=== PATIENT | female | born 1945 | race Caucasian/White ===

== ENCOUNTER 2020-06-24 10:04 | Inpatient (IN) | payer MEDICARE ==
[2020-06-24] MEDS ORDERED: Zofran 4 MG/2 ML VIAL IV ONE (10:20)
[2020-06-24] MEDS ORDERED: PROTONIX 40 MG IV IV ONE ×2 (10:20→10:46)
[2020-06-24] MEDS ORDERED: Sodium Chloride 0.9% 1000 ML 1,000 ML IV STA ×3 (10:20→16:16)
[2020-06-24] MEDS ORDERED: Zofran 4 MG/2 ML VIAL ONE (10:46)
[2020-06-24] MEDS ORDERED: Sodium Chloride 0.9% 1000 ML 1,000 ML ONE ×2 (10:46→11:32)
[2020-06-24 11:11] LABS: Absolute Neutrophil Ct (ANC) 7.78 (1.4-6.9); BASOPHIL % 0.3 % (0.0-0.4); Basophil (Absolute #) 0.03 (0-0.4); Hematocrit 33.3 % (35-47); Hemoglobin 10.3 gm/dl (12.0-16.0); Lymphocyte (Absolute #) 1.63 (1.0-4.6); Lymphocytes % 16.4 % (24.0-44.0); Mean Cell Volume 98.2 fl (78-100); Mean Corpuscular Hemoglobin 30.4 pg (26-32); Mean Corpuscular Hgb Concent. 30.9 g/dl (32-36); Mean Platelet Volume 11.1 fl (7.5-11.0); Monocyte (Absolute #) 0.39 (0.0-1.3); Monocytes % 3.9 % (0.0-12.0); Neutrophil % 78.4 % (36.0-66.0); Platelet Count 295 K/mm3 (150-450); Red Blood Count 3.39 M/mm3 (4.1-5.4); Red Cell Distribution Width 15.3 % (11.5-14.0); White Blood Count 9.9 K/mm3 (4.0-10.5)
--- NOTE | 2020-06-24 11:13 | ERPHSYRPT ---
- History of Present Illness Time Seen by Provider: 06/24/20 11:11 Source: patient Exam Limitations: no limitations Patient Subjective Stated Complaint: Pt has been sick for approx 3 weeks, been vomiting for about a week, diarhea, body aches, dizzy, last intake yesterday v luiz minimal, Triage Nursing Assessment: Pt brought to the ER by her daughter, A&O, weak, dizzy, nauseaous, denies pain, hypotensive, pulses normal, skin n/c/d Physician History: Pt has been sick for approx 3 weeks, been vomiting for about a week, diarhea, body aches, dizzy, last intake yesterday very minimal, denies any fever shortness of breath or chest pain Timing/Duration: week(s) (three) Severity: moderate Associated Symptoms: nausea, vomiting, abdominal pain, loss of appetite, weakness Allergies/Adverse Reactions: No Known Drug Allergies Allergy (Verified 06/24/20 10:37) Home Medications: Aspirin EC 81 mg [Ecotrin 81 mg] 81 mg PO DAILY 07/23/13 [History] Metformin HCl 1000 mg [Glucophage 1000 MG] 1,000 mg PO BID 07/23/13 [History] Metoprolol Succinate 50 mg [Toprol Xl 50 MG] 50 mg PO BID 07/23/13 [History] Glucosam/Chondr/Collagn/Hyalur [Glucosamine & Chondroitin Cap] 1 tab PO BID [History] Simvastatin 40 mg PO DAILY 07/26/13 [History] Empagliflozin [Jardiance] 10 mg PO QAM 06/24/20 [History] Lisinopril/Hydrochlorothiazide [Lisinopril-Hctz 10-12.5 mg Tab] 1 tab PO DAILY 06/24/20 [History] Ondansetron HCl 4 mg SL Q8H 06/24/20 [History] allopurinoL [Allopurinol] 300 mg PO BID 06/24/20 [History] Hx Influenza Vaccination/Date Given: No Hx Pneumococcal Vaccination/Date Given: No Travel Risk - International Travel Have you traveled outside of the country in past 3 weeks: No - Coronavirus Screening Are you exhibiting any of the following symptoms?: Yes Symptoms: Vomiting/Diarrhea, Headaches/Body Aches/Fatigue Close contact with a COVID-19 positive Pt in past 14-21 Days: No - Review of Systems Constitutional: Weakness, No Fever, No Chills Eyes: No Symptoms Ears, Nose, & Throat: No Symptoms Respiratory: No Cough, No Dyspnea Cardiac: No Chest Pain, No Edema, No Syncope Abdominal/Gastrointestinal: Abdominal Pain, Nausea, Vomiting, Appetite Changes, No Diarrhea Genitourinary Symptoms: No Dysuria Musculoskeletal: No Back Pain, No Neck Pain Skin: No Rash Neurological: No Dizziness, No Focal Weakness, No Sensory Changes Psychological: No Symptoms Endocrine: No Symptoms All Other Systems: Reviewed and Negative - Past Medical History Pertinent Past Medical History: Yes Neurological History: No Pertinent History ENT History: No Pertinent History Cardiac History: High Cholesterol, Hypertension Respiratory History: No Pertinent History Endocrine Medical History: Diabetes Type II, Other Musculoskeletal History: Osteoarthritis GI Medical History: Gallbladder Disease History: No Pertinent History Psycho-Social History: No Pertinent History Female Reproductive Disorders: Abnormal Uterine Bleeding Other Medical History: liver enlarged and thryoid nodules - Past Surgical History Past Surgical History: Yes Neuro Surgical History: No Pertinent History Cardiac: No Pertinent History Respiratory: No Pertinent History Gastrointestinal: Cholecystectomy Genitourinary: No Pertinent History Musculoskeletal: No Pertinent History Female Surgical History: Hysterectomy - Social History Smoking Status: Never smoker Exposure to second hand smoke: No Drug Use: none Patient Lives Alone: Yes - Female History Hx Now: No - Nursing Vital Signs Nursing Vital Signs: Initial Vital Signs Temperature 98.3 F 06/24/20 10:22 Pulse Rate 78 06/24/20 10:22 Blood Pressure 88/45 06/24/20 10:22 O2 Sat by Pulse Oximetry 100 06/24/20 10:22 Pain Scale Pain Intensity 0 - Physical Exam General Appearance: no apparent distress, alert Eye Exam: PERRL/EOMI, eyes nml inspection Ears, Nose, Throat Exam: normal ENT inspection, TMs normal, pharynx normal, moist mucous membranes Neck Exam: normal inspection, non-tender, supple, full range of motion Respiratory Exam: normal breath sounds, lungs clear, No respiratory distress Cardiovascular Exam: regular rate/rhythm, normal heart sounds, normal peripheral pulses Gastrointestinal/Abdomen Exam: soft, normal bowel sounds, No tenderness, No mass Back Exam: normal inspection, normal range of motion, No CVA tenderness, No vertebral tenderness Extremity Exam: normal inspection, normal range of motion, pelvis stable Neurologic Exam: alert, oriented x 3, cooperative, normal mood/affect, nml cerebellar function, nml station & gait, sensation nml, No motor deficits Skin Exam: normal color, warm, dry, No rash Lymphatic Exam: No adenopathy SpO2: 99 - Course Nursing assessment & vital signs reviewed: Yes Ordered Tests: Active Orders 24 hr Category Date Time Status IV Insertion STAT Care 06/24/20 11:04 Active IV Insertion-2nd Peripheral STAT Care 06/24/20 11:04 Active CBC W DIFF Stat Lab 06/24/20 11:00 Completed CMP Stat Lab 06/24/20 11:00 Completed CULTURE,URINE Stat Lab 06/24/20 11:02 Received LIPASE Stat Lab 06/24/20 11:00 Completed Lactic Acid Stat Lab 06/24/20 11:03 Completed TROPONIN Q3H Lab 06/24/20 11:00 Completed TROPONIN Q3H Lab 06/24/20 13:30 Ordered TROPONIN Q3H Lab 06/24/20 16:30 Ordered TROPONIN Q3H Lab 06/24/20 19:30 Ordered TROPONIN Q3H Lab 06/24/20 22:30 Ordered UA W/RFX UR CULTURE Stat Lab 06/24/20 11:02 Completed Transfer Order Routine Transfer 06/24/20 Ordered Medication Summary Generic Name Dose Route Start Last Admin Trade Name Freq PRN Reason Stop Dose Admin Sodium Chloride 1,000 mls @ 999 mls/hr 06/24/20 11:51 06/24/20 11:52 Sodium Chloride 0.9% 1000 Ml IV 06/24/20 12:51 999 mls/hr .Q1H1M STA Administration Discontinued Medications Generic Name Dose Route Start Last Admin Trade Name Freq PRN Reason Stop Dose Admin Sodium Chloride 1,000 mls @ 999 mls/hr 06/24/20 10:20 06/24/20 11:50 Sodium Chloride 0.9% 1000 Ml IV 06/24/20 11:20 Infused .Q1H1M STA Infusion Sodium Chloride Confirm 06/24/20 10:46 Sodium Chloride 0.9% 1000 Ml Administered 06/24/20 10:47 Dose 1,000 mls @ ud .ROUTE .STK-MED ONE Sodium Chloride Confirm 06/24/20 11:32 Sodium Chloride 0.9% 1000 Ml Administered 06/24/20 11:33 Dose 1,000 mls @ ud .ROUTE .STK-MED ONE Ondansetron HCl 4 mg 06/24/20 10:20 06/24/20 10:49 Zofran 4 Mg/2 Ml Vial IV 06/24/20 10:21 4 mg STAT ONE Administration Ondansetron HCl Confirm 06/24/20 10:46 Zofran 4 Mg/2 Ml Vial Administered 06/24/20 10:47 Dose 4 mg .ROUTE .STK-MED ONE Pantoprazole Sodium 40 mg 06/24/20 10:20 06/24/20 10:49 Protonix 40 Mg Iv IV 06/24/20 10:21 40 mg STAT ONE Administration Pantoprazole Sodium Confirm 06/24/20 10:46 Protonix 40 Mg Iv Administered 06/24/20 10:47 Dose 40 mg IV .K-MED ONE Lab/Rad Data: Laboratory Result Diagrams 06/24/20 11:00 06/24/20 11:00 Laboratory Results 06/24/20 06/24/20 06/24/20 Range/Units 11:03 11:02 11:00 WBC (4.0-10.5) K/mm3 RBC (4.1-5.4) M/mm3 Hgb (12.0-16.0) gm/dl Hct (35-47) % MCV (78-100) fl MCH (26-32) pg MCHC (32-36) g/dl RDW (11.5-14.0) % Plt Count (150-450) K/mm3 MPV (7.5-11.0) fl Gran % (36.0-66.0) % Eos # (Auto) (0-0.5) Absolute Lymphs (auto) (1.0-4.6) Absolute Monos (auto) (0.0-1.3) Lymphocytes % (24.0-44.0) % Monocytes % (0.0-12.0) % Eosinophils % (0.00-5.0) % Basophils % (0.0-0.4) % Absolute Granulocytes (1.4-6.9) Basophils # (0-0.4) Sodium (137-145) mmol/L Potassium (3.5-5.1) mmol/L Chloride (98-107) mmol/L Carbon Dioxide (22-30) mmol/L Anion Gap (5-15) MEQ/L BUN (7-17) mg/dL Creatinine (0.52-1.04) mg/dL Estimated GFR ML/MIN Glucose (74-106) mg/dL Lactic Acid 1.6 (0.4-2.0) Calcium (8.4-10.2) mg/dL Total Bilirubin (0.2-1.3) mg/dL AST (14-36) U/L ALT (0-35) U/L Alkaline Phosphatase (38-126) U/L Troponin I 0.016 (0.000-0.034) ng/mL Serum Total Protein (6.3-8.2) g/dL Albumin (3.5-5.0) g/dL Lipase (23-300) U/L Urine Color YELLOW (YELLOW) Urine Appearance SLIGHTLY CLOUDY (CLEAR) Urine pH 5.0 (5-6) Ur Specific [place] 1.016 (1.005-1.025) Urine Protein 100 (Negative) Urine Ketones TRACE (NEGATIVE) Urine Blood MODERATE (0-5) Luiz/ul Urine Nitrite NEGATIVE (NEGATIVE) Urine Bilirubin SMALL (NEGATIVE) Urine Urobilinogen 2 (0-1) mg/dL Ur Leukocyte Esterase SMALL (NEGATIVE) Urine WBC (Auto) 6-10 (0-5) /HPF Urine RBC (Auto) 0-2 (0-2) /HPF U Hyaline Cast (Auto) 6-10 (0-2) /LPF U Epithel Cells (Auto) RARE (FEW) /HPF Urine Bacteria (Auto) FEW (NEGATIVE) /HPF Urine Mucus (Auto) SLIGHT (NEGATIVE) /HPF Urine Culture Reflexed YES (NO) Urine Glucose 50 (NEGATIVE) mg/dL 06/24/20 06/24/20 Range/Units 11:00 11:00 WBC 9.9 (4.0-10.5) K/mm3 RBC 3.39 L (4.1-5.4) M/mm3 Hgb 10.3 L (12.0-16.0) gm/dl Hct 33.3 L (35-47) % MCV 98.2 (78-100) fl MCH 30.4 (26-32) pg MCHC 30.9 L (32-36) g/dl RDW 15.3 H (11.5-14.0) % Plt Count 295 (150-450) K/mm3 MPV 11.1 H (7.5-11.0) fl Gran % 78.4 H (36.0-66.0) % Eos # (Auto) 0.10 (0-0.5) Absolute Lymphs (auto) 1.63 (1.0-4.6) Absolute Monos (auto) 0.39 (0.0-1.3) Lymphocytes % 16.4 L (24.0-44.0) % Monocytes % 3.9 (0.0-12.0) % Eosinophils % 1.0 (0.00-5.0) % Basophils % 0.3 (0.0-0.4) % Absolute Granulocytes 7.78 H (1.4-6.9) Basophils # 0.03 (0-0.4) Sodium 135 L (137-145) mmol/L Potassium 4.5 (3.5-5.1) mmol/L Chloride 99 (98-107) mmol/L Carbon Dioxide 14 L* (22-30) mmol/L Anion Gap 26.1 H (5-15) MEQ/L BUN 101 H (7-17) mg/dL Creatinine 10.32 H (0.52-1.04) mg/dL Estimated GFR 3.9 ML/MIN Glucose 173 H (74-106) mg/dL Lactic Acid (0.4-2.0) Calcium 10.1 (8.4-10.2) mg/dL Total Bilirubin 0.40 (0.2-1.3) mg/dL AST 26 (14-36) U/L ALT 27 (0-35) U/L Alkaline Phosphatase 372 H (38-126) U/L Troponin I (0.000-0.034) ng/mL Serum Total Protein 7.4 (6.3-8.2) g/dL Albumin 4.3 (3.5-5.0) g/dL Lipase 1055 H (23-300) U/L Urine Color (YELLOW) Urine Appearance (CLEAR) Urine pH (5-6) Ur Specific [place] (1.005-1.025) Urine Protein (Negative) Urine Ketones (NEGATIVE) Urine Blood (0-5) Luiz/ul Urine Nitrite (NEGATIVE) Urine Bilirubin (NEGATIVE) Urine Urobilinogen (0-1) mg/dL Ur Leukocyte Esterase (NEGATIVE) Urine WBC (Auto) (0-5) /HPF Urine RBC (Auto) (0-2) /HPF U Hyaline Cast (Auto) (0-2) /LPF U Epithel Cells (Auto) (FEW) /HPF Urine Bacteria (Auto) (NEGATIVE) /HPF Urine Mucus (Auto) (NEGATIVE) /HPF Urine Culture Reflexed (NO) Urine Glucose (NEGATIVE) mg/dL - Progress Progress: improved Discussed with : Hanny Will see patient in: hospital (full admit) Counseled pt/family regarding: lab results, diagnosis, need for follow-up - Departure Departure Disposition: In-patient Admission Clinical Impression: Dehydration, Metabolic acidosis due to diabetes mellitus Acute renal failure syndrome Qualifiers: Acute renal failure type: unspecified Qualified Code(s): N17.9 - Acute kidney f ailure, unspecified Condition: Fair Critical Care Time: Yes Critical Care Time(excluding separately billable procedures): Critical 30-74 mins Referrals: SHANDRA LEONARD MD [Primary Care Provider] -
[2020-06-24 11:21] LABS: ALBUMIN 4.3 g/dL (3.5-5.0); ANION GAP 26.1 MEQ/L (5-15); BILIRUBIN,TOTAL 0.4 mg/dL (0.2-1.3); Calcium 10.1 mg/dL (8.4-10.2); Creatinine 1 10.32 mg/dL (0.52-1.04); EST GLOMERULAR FILTRATION RATE 3.9 ML/MIN; Potassium 4.5 mmol/L (3.5-5.1); Total Protein 7.4 g/dL (6.3-8.2)
[2020-06-24 11:24] LABS: Appearance SLIGHTLY CLOUDY (CLEAR); Bacteria FEW /HPF (NEGATIVE); Bilirubin SMALL (NEGATIVE); Blood MODERATE Ery/ul (0-5); Epithelial Cells RARE /HPF (FEW); Glucose 50 mg/dL (NEGATIVE); Ketones TRACE (NEGATIVE); Leukocyte Esterase SMALL (NEGATIVE); Mucus SLIGHT /HPF (NEGATIVE); Nitrite NEGATIVE (NEGATIVE); Protein,Urine Dip 100 (Negative); RBC 0-2 /HPF (0-2); Specific Gravity 1.016 (1.005-1.025); Urobilinogen 2 mg/dL (0-1)
[2020-06-24] MEDS ORDERED: HUMULIN R SQ PRN (12:25)
[2020-06-24] MEDS: Sodium Chloride 0.9% 1000 ML 1,000 ML IV SCH ×2 (12:45→18:23)
[2020-06-24] MEDS ORDERED: Zestril 10 MG*** 10 MG, hydroDIURIL 25 MG*** 12.5 MG PO SCH ×2 (14:00)
[2020-06-24] MEDS ORDERED: NON-FORMULARY ITEM (Ondansetron Hcl [Ondansetron Hcl] 4 MG) SL SCH (14:00)
--- NOTE | 2020-06-24 14:25 | PCM.HP ---
History of Present Illness - Chief Complaint Chief Complaint: DEHYDRATION, ARF History of Present Illness: is a 75 year old female.Pt brought to the ER by her daughter, A&O, weak, dizzy, nauseaous, denies pain, Pt has been sick for approx 3 weeks, been vomiting for about a week, diarhea, body aches, dizzy, last intake yesterday very minimal, denies any fever shortness of breath or chest pain Timing/Duration: week(s) (three) Severity: moderate Associated Symptoms: nausea, vomiting, abdominal pain, loss of appetite, weakness - Review of Systems Constitutional: Lethargy, Weakness, No Fever, No Chills Eyes: No Symptoms Ears, Nose, & Throat: No Symptoms Respiratory: No Cough, No Short Of Breath Cardiac: No Chest Pain, No Edema, No Syncope Abdominal/Gastrointestinal: No Abdominal Pain, No Nausea, No Vomiting, No Diarrhea Genitourinary Symptoms: No Dysuria Musculoskeletal: No Back Pain, No Neck Pain Skin: No Rash Neurological: No Dizziness, No Focal Weakness, No Sensory Changes Psychological: No Symptoms Endocrine: No Symptoms Hematologic/Lymphatic: No Symptoms Immunological/Allergic: No Symptoms Medications & Allergies Home Medications: Home Medication List Aspirin EC 81 mg [Ecotrin 81 mg] 81 mg PO DAILY 07/23/13 [History Confirmed 06/24/20] Metformin HCl 1000 mg [Glucophage 1000 MG] 1,000 mg PO BID 07/23/13 [History Confirmed 06/24/20] Metoprolol Succinate 50 mg [Toprol Xl 50 MG] 50 mg PO BID 07/23/13 [History Confirmed 06/24/20] Empagliflozin [Jardiance] 10 mg PO QAM 06/24/20 [History Confirmed 06/24/20] Lisinopril/Hydrochlorothiazide [Lisinopril-Hctz 10-12.5 mg Tab] 1 tab PO DAILY 06/24/20 [History Confirmed 06/24/20] Ondansetron HCl 4 mg SL Q8H 06/24/20 [History Confirmed 06/24/20] Simvastatin 40 mg PO HS 06/24/20 [History Confirmed 06/24/20] allopurinoL [Allopurinol] 300 mg PO BID 06/24/20 [History Confirmed 06/24/20] Allergies/Adverse Reactions: Allergies Allergy/AdvReac Type Severity Reaction Status Date / Time No Known Drug Allergies Allergy Verified 06/24/20 10:37 - Past Medical History Past Medical History: Yes Neurological History: No Pertinent History ENT History: No Pertinent History Cardiac History: High Cholesterol, Hypertension Respiratory History: No Pertinent History Endocrine Medical History: Diabetes Type II, Other Musculoskelatal History: Osteoarthritis GI Medical History: Gallbladder Disease History: No Pertinent History Pyscho-Social History: No Pertinent History Reproductive Disorders: Abnormal Uterine Bleeding Comment: liver enlarged and thryoid nodules - Female History Are you now?: No - Past Surgical History Past Surgical History: Yes Neuro Surgical History: No Pertinent History Cardiac History: No Pertinent History Respiratory Surgery: No Pertinent History GI Surgical History: Cholecystectomy Genitourinary Surgical Hx: No Pertinent History Musculskeletal Surgical Hx: No Pertinent History Female Surgical History: Hysterectomy - Social History Smoking Status: Never smoker Exposure to second hand smoke: No Alcohol: None Drug Use: none - Physical Exam Vital Signs: Vital Signs - 24 hr Temp Pulse Resp BP Pulse Ox 06/24/20 13:31 94 L 06/24/20 12:20 98.5 F 69 16 91/44 98 06/24/20 12:01 68 16 84/39 94 L 06/24/20 11:56 99 06/24/20 11:05 72 18 83/40 99 06/24/20 10:22 98.3 F 78 88/45 100 General Appearance: no apparent distress, alert Neurologic Exam: alert, oriented x 3, cooperative, normal mood/affect, nml cerebellar function, nml station & gait, sensation nml, No motor deficits Eye Exam: PERRL/EOMI, eyes nml inspection Ears, Nose, Throat Exam: normal ENT inspection, TMs normal, pharynx normal, moist mucous membranes Neck Exam: normal inspection, non-tender, supple, full range of motion Respiratory Exam: normal breath sounds, lungs clear, No respiratory distress Cardiovascular Exam: regular rate/rhythm, normal heart sounds, normal peripheral pulses Gastrointestinal/Abdomen Exam: soft, normal bowel sounds, No tenderness, No mass Back Exam: normal inspection, normal range of motion, No CVA tenderness, No vertebral tenderness Extremity Exam: normal inspection, normal range of motion, pelvis stable Skin Exam: normal color, warm, dry, No rash Lymphatic Exam: No adenopathy Results - Labs Lab/Micro Results: Lab Results-Last 24 Hours 06/24/20 06/24/20 06/24/20 Range/Units 11:00 11:00 11:00 WBC 9.9 (4.0-10.5) K/mm3 RBC 3.39 L (4.1-5.4) M/mm3 Hgb 10.3 L (12.0-16.0) gm/dl Hct 33.3 L (35-47) % MCV 98.2 (78-100) fl MCH 30.4 (26-32) pg MCHC 30.9 L (32-36) g/dl RDW 15.3 H (11.5-14.0) % Plt Count 295 (150-450) K/mm3 MPV 11.1 H (7.5-11.0) fl Gran % 78.4 H (36.0-66.0) % Eos # (Auto) 0.10 (0-0.5) Absolute Lymphs (auto) 1.63 (1.0-4.6) Absolute Monos (auto) 0.39 (0.0-1.3) Lymphocytes % 16.4 L (24.0-44.0) % Monocytes % 3.9 (0.0-12.0) % Eosinophils % 1.0 (0.00-5.0) % Basophils % 0.3 (0.0-0.4) % Absolute Granulocytes 7.78 H (1.4-6.9) Basophils # 0.03 (0-0.4) Sodium 135 L (137-145) mmol/L Potassium 4.5 (3.5-5.1) mmol/L Chloride 99 (98-107) mmol/L Carbon Dioxide 14 L* (22-30) mmol/L Anion Gap 26.1 H (5-15) MEQ/L BUN 101 H (7-17) mg/dL Creatinine 10.32 H (0.52-1.04) mg/dL Estimated GFR 3.9 ML/MIN Glucose 173 H (74-106) mg/dL Lactic Acid (0.4-2.0) Calcium 10.1 (8.4-10.2) mg/dL Total Bilirubin 0.40 (0.2-1.3) mg/dL AST 26 (14-36) U/L ALT 27 (0-35) U/L Alkaline Phosphatase 372 H (38-126) U/L Troponin I 0.016 (0.000-0.034) ng/mL Serum Total Protein 7.4 (6.3-8.2) g/dL Albumin 4.3 (3.5-5.0) g/dL Lipase 1055 H (23-300) U/L Urine Color (YELLOW) Urine Appearance (CLEAR) Urine pH (5-6) Ur Specific [place] (1.005-1.025) Urine Protein (Negative) Urine Ketones (NEGATIVE) Urine Blood (0-5) Luiz/ul Urine Nitrite (NEGATIVE) Urine Bilirubin (NEGATIVE) Urine Urobilinogen (0-1) mg/dL Ur Leukocyte Esterase (NEGATIVE) Urine WBC (Auto) (0-5) /HPF Urine RBC (Auto) (0-2) /HPF U Hyaline Cast (Auto) (0-2) /LPF U Epithel Cells (Auto) (FEW) /HPF Urine Bacteria (Auto) (NEGATIVE) /HPF Urine Mucus (Auto) (NEGATIVE) /HPF Urine Culture Reflexed (NO) Urine Glucose (NEGATIVE) mg/dL 06/24/20 06/24/20 Range/Units 11:02 11:03 WBC (4.0-10.5) K/mm3 RBC (4.1-5.4) M/mm3 Hgb (12.0-16.0) gm/dl Hct (35-47) % MCV (78-100) fl MCH (26-32) pg MCHC (32-36) g/dl RDW (11.5-14.0) % Plt Count (150-450) K/mm3 MPV (7.5-11.0) fl Gran % (36.0-66.0) % Eos # (Auto) (0-0.5) Absolute Lymphs (auto) (1.0-4.6) Absolute Monos (auto) (0.0-1.3) Lymphocytes % (24.0-44.0) % Monocytes % (0.0-12.0) % Eosinophils % (0.00-5.0) % Basophils % (0.0-0.4) % Absolute Granulocytes (1.4-6.9) Basophils # (0-0.4) Sodium (137-145) mmol/L Potassium (3.5-5.1) mmol/L Chloride (98-107) mmol/L Carbon Dioxide (22-30) mmol/L Anion Gap (5-15) MEQ/L BUN (7-17) mg/dL Creatinine (0.52-1.04) mg/dL Estimated GFR ML/MIN Glucose (74-106) mg/dL Lactic Acid 1.6 (0.4-2.0) Calcium (8.4-10.2) mg/dL Total Bilirubin (0.2-1.3) mg/dL AST (14-36) U/L ALT (0-35) U/L Alkaline Phosphatase (38-126) U/L Troponin I (0.000-0.034) ng/mL Serum Total Protein (6.3-8.2) g/dL Albumin (3.5-5.0) g/dL Lipase (23-300) U/L Urine Color YELLOW (YELLOW) Urine Appearance SLIGHTLY CLOUDY (CLEAR) Urine pH 5.0 (5-6) Ur Specific [place] 1.016 (1.005-1.025) Urine Protein 100 (Negative) Urine Ketones TRACE (NEGATIVE) Urine Blood MODERATE (0-5) Luiz/ul Urine Nitrite NEGATIVE (NEGATIVE) Urine Bilirubin SMALL (NEGATIVE) Urine Urobilinogen 2 (0-1) mg/dL Ur Leukocyte Esterase SMALL (NEGATIVE) Urine WBC (Auto) 6-10 (0-5) /HPF Urine RBC (Auto) 0-2 (0-2) /HPF U Hyaline Cast (Auto) 6-10 (0-2) /LPF U Epithel Cells (Auto) RARE (FEW) /HPF Urine Bacteria (Auto) FEW (NEGATIVE) /HPF Urine Mucus (Auto) SLIGHT (NEGATIVE) /HPF Urine Culture Reflexed YES (NO) Urine Glucose 50 (NEGATIVE) mg/dL - Other Procedures and Tests Respiratory Therapy 06/24/20 12:25 Oxygen Nasal Cannula 2 lpm Assessment/Plan (1) Acute renal failure syndrome Current Visit: Yes Status: Acute Qualifiers: Acute renal failure type: unspecified Qualified Code(s): N17.9 - Acute kidney failure, unspecified Assessment & Plan: Abnormal Lab Results 06/24/20 06/24/20 Range/Units 11:00 11:00 RBC 3.39 L (4.1-5.4) M/mm3 Hgb 10.3 L (12.0-16.0) gm/dl Hct 33.3 L (35-47) % MCHC 30.9 L (32-36) g/dl RDW 15.3 H (11.5-14.0) % MPV 11.1 H (7.5-11.0) fl Gran % 78.4 H (36.0-66.0) % Lymphocytes % 16.4 L (24.0-44.0) % Absolute Granulocytes 7.78 H (1.4-6.9) Sodium 135 L (137-145) mmol/L Carbon Dioxide 14 L* (22-30) mmol/L Anion Gap 26.1 H (5-15) MEQ/L BUN 101 H (7-17) mg/dL Creatinine 10.32 H (0.52-1.04) mg/dL Glucose 173 H (74-106) mg/dL Alkaline Phosphatase 372 H (38-126) U/L Lipase 1055 H (23-300) U/L (2) Pancreatitis Current Visit: Yes Status: Acute Qualifiers: Chronicity: acute Pancreatitis type: unspecified pancreatitis type Acute pancreatitis complication: unspecified Qualified Code(s): K85.90 - Acute pancr eatitis without necrosis or infection, unspecified Code(s): K85.90 - ACUTE PANCREATITIS WITHOUT NECROSIS OR INFECTION, UNSP (3) Type 2 diabetes mellitus Current Visit: Yes Status: Acute 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 use Diabetes mellitus complication status: with ketoacidosis Diabetes mellitus complication detail: without coma Qualified Code(s): E11.10 - Type 2 diabetes mellitus with ketoacidosis without coma (4) Metabolic acidosis due to diabetes mellitus Current Visit: Yes Status: Acute Code(s): E11.69 - TYPE 2 DIABETES MELLITUS WITH OTHER SPECIFIED COMPLICATION; E87.2 - ACIDOSIS (5) Hypertension Current Visit: Yes Status: Chronic Qualifiers: Hypertension type: essential hypertension Qualified Code(s): I10 - Essen tial (primary) hypertension Code(s): I10 - ESSENTIAL (PRIMARY) HYPERTENSION (6) Dehydration Current Visit: Yes Status: Acute Code(s): E86.0 - DEHYDRATION
[2020-06-24] MEDS: Toprol Xl 50 MG PO SCH ×2 (14:35→21:01)
[2020-06-24] MEDS: ECOTRIN 81 MG PO SCH (14:35)
[2020-06-24] MEDS: TYLENOL 325 MG PO PRN (16:43)
[2020-06-24] MEDS: Zofran 4 MG/2 ML VIAL IV PRN ×2 (16:43→23:08)
[2020-06-24] MEDS ORDERED: Sodium Chloride 0.9% 1000 ML 1,000 ML IV SCH (17:30)
[2020-06-24 19:39] LABS: ALBUMIN 3.1 g/dL (3.5-5.0); ANION GAP 18.3 MEQ/L (5-15); BILIRUBIN,TOTAL 0.3 mg/dL (0.2-1.3); Calcium 8.3 mg/dL (8.4-10.2); Creatinine 1 8.34 mg/dL (0.52-1.04); Potassium 4.2 mmol/L (3.5-5.1); Total Protein 5.6 g/dL (6.3-8.2)
[2020-06-24] MEDS: Sodium Chloride 0.9% 1000 ML 1,000 ML IV STA (21:59)
[2020-06-24] MEDS ORDERED: NON-FORMULARY ITEM (Simvastatin [Simvastatin] 40 MG) PO SCH (22:00)
[2020-06-24] MEDS ORDERED: NON-FORMULARY ITEM (Metformin Hcl 1000 Mg [Glucophage 1000 Mg] 1,000 MG) PO SCH (22:00)
[2020-06-24] MEDS ORDERED: ZYLOPRIM 300 MG PO SCH (22:00)
[2020-06-25] MEDS: Sodium Chloride 0.9% 1000 ML 1,000 ML IV STA (00:08)
[2020-06-25] MEDS: Sodium Chloride 0.9% 1000 ML 1,000 ML IV SCH ×4 (01:08→20:54)
[2020-06-25] MEDS: TYLENOL 325 MG PO PRN ×2 (06:39→14:08)
[2020-06-25 06:52] LABS: ALBUMIN 2.7 g/dL (3.5-5.0); ANION GAP 14.6 MEQ/L (5-15); BILIRUBIN,TOTAL 0.3 mg/dL (0.2-1.3); Calcium 8.2 mg/dL (8.4-10.2); Creatinine 1 6.92 mg/dL (0.52-1.04); EST GLOMERULAR FILTRATION RATE 6.1 ML/MIN; Total Protein 5.2 g/dL (6.3-8.2)
[2020-06-25] MEDS: Sodium Chloride 0.9% 10 ML FLUSH Syringe IV SCH ×3 (07:30→20:55)
[2020-06-25 07:36] LABS: Absolute Neutrophil Ct (ANC) 3.99 (1.4-6.9); BASOPHIL % 0.4 % (0.0-0.4); Basophil (Absolute #) 0.03 (0-0.4); Eosinophil % 3.3 % (0.00-5.0); Eosinophil (Absolute #) 0.23 (0-0.5); Hematocrit 26.8 % (35-47); Hemoglobin 8.1 gm/dl (12.0-16.0); Lymphocyte (Absolute #) 2.16 (1.0-4.6); Lymphocytes % 31.2 % (24.0-44.0); Mean Corpuscular Hemoglobin 30.2 pg (26-32); Mean Corpuscular Hgb Concent. 30.2 g/dl (32-36); Mean Platelet Volume 11.5 fl (7.5-11.0); Monocyte (Absolute #) 0.51 (0.0-1.3); Monocytes % 7.4 % (0.0-12.0); Neutrophil % 57.7 % (36.0-66.0); Platelet Count 183 K/mm3 (150-450); Red Blood Count 2.68 M/mm3 (4.1-5.4); Red Cell Distribution Width 15.4 % (11.5-14.0); White Blood Count 6.9 K/mm3 (4.0-10.5)
--- NOTE | 2020-06-25 08:28 | XRAY ---
Indication: Nausea, vomiting, weakness, and elevated amylase/lipase. Multiple contiguous axial images obtained through the abdomen and pelvis without contrast as ordered. Comparison: None Lung bases demonstrates fibrosis/scarring and minimal bilateral dependent atelectasis. No infiltrate or effusion. Heart is borderline enlarged. Small hiatal hernia. Noncontrasted stomach and bowel loops appear nonobstructed. Normal appendix. Scattered sigmoid diverticulosis. Head and body of the pancreas appears prominent/edematous with peripancreatic stranding favoring acute pancreatitis. Adjacent duodenal circumferential wall thickening presumed reactive. Tiny inferior perihepatic and pelvic free fluid. No walled off fluid collection or free air. Previous cholecystectomy and hysterectomy. Remaining liver, spleen, adrenal glands, kidneys, ureters, and bladder appear unremarkable for noncontrast exam. Mild aortoiliac calcifications without AAA. Osseous structures demonstrates mild osteopenia, mild/moderate degenerative spondylosis throughout the thoracolumbar spine, and left L5 spondylolysis with 2-3 mm spondylolisthesis. Impression: 1. CT findings favoring acute pancreatitis as detailed with tiny free fluid. No walled off fluid collection or free air. 2. Incidental small hiatal hernia, sigmoid diverticulosis, and chronic bony findings. Comment: Preliminary interpretation was made by [facility]. No critical discrepancy.
--- NOTE | 2020-06-25 08:58 | PCM.NOTE ---
Date and Time: 06/25/20 0856 Subjective Assessment: doing better, BP is running low, urine output improving. still feels weak and dizzy - Review of Systems Constitutional: Weakness, No Fever, No Chills Eyes: No Symptoms Ears, Nose, & Throat: No Symptoms Respiratory: No Cough, No Short Of Breath Cardiac: No Chest Pain, No Edema, No Syncope Abdominal/Gastrointestinal: No Abdominal Pain, No Nausea, No Vomiting, No Diarrhea Genitourinary Symptoms: No Dysuria Musculoskeletal: No Back Pain, No Neck Pain Skin: No Rash Neurological: No Dizziness, No Focal Weakness, No Sensory Changes Psychological: No Symptoms Endocrine: No Symptoms Hematologic/Lymphatic: No Symptoms Immunological/Allergic: No Symptoms Objective Exam General Appearance: no apparent distress, alert Neurologic Exam: alert, oriented x 3, cooperative, normal mood/affect, nml cerebellar function, sensation nml, No motor deficits Skin Exam: normal color, warm, dry Eye Exam: PERRL, EOMI, eyes nml inspection Ears, Nose, Throat Exam: normal ENT inspection, pharynx normal, moist mucous mem branes Neck Exam: normal inspection, non-tender, supple, full range of motion Respiratory Exam: normal breath sounds, lungs clear, No respiratory distress Cardiovascular Exam: regular rate/rhythm, normal heart sounds Gastrointestinal/Abdomen Exam: soft, No tenderness, No mass Extremity Exam: normal inspection, normal range of motion Back Exam: normal inspection, normal range of motion, No CVA tenderness, No vertebral tenderness Pelvic Exam: deferred Rectal Exam: deferred OBJECTIVE DATA Vital Signs: Vital Signs - 24 hr Temp Pulse Resp BP Pulse Ox 06/25/20 07:01 98.7 F 67 18 91/44 94 L 06/25/20 06:59 94 L 06/25/20 04:00 97.5 F 79 17 83/43 97 06/24/20 23:47 98.0 F 79 16 89/43 96 06/24/20 21:30 71 87/40 06/24/20 20:11 94 L 06/24/20 20:00 98.2 F 71 17 89/46 98 06/24/20 16:00 98.1 F 79 18 88/47 93 L 06/24/20 13:31 94 L 06/24/20 12:20 98.5 F 69 16 91/44 98 06/24/20 12:01 68 16 84/39 94 L 06/24/20 11:56 99 06/24/20 11:05 72 18 83/40 99 06/24/20 10:22 98.3 F 78 88/45 100 Pain Assessment - Last Documented Pain Intensity 5 Pain Scale Used 0-10 Pain Scale Intake and Output: Intake & Output 06/22/20 06/23/20 06/24/20 06/25/20 11:59 11:59 11:59 11:59 Intake Total 9716 Output Total 1350 Balance 8366 Weight 80.286 kg 80.3 kg Lab Results: Lab Results-Last 24 Hours 06/24/20 06/24/20 06/24/20 Range/Units 11:00 11:00 11:00 WBC 9.9 (4.0-10.5) K/mm3 RBC 3.39 L (4.1-5.4) M/mm3 Hgb 10.3 L (12.0-16.0) gm/dl Hct 33.3 L (35-47) % MCV 98.2 (78-100) fl MCH 30.4 (26-32) pg MCHC 30.9 L (32-36) g/dl RDW 15.3 H (11.5-14.0) % Plt Count 295 (150-450) K/mm3 MPV 11.1 H (7.5-11.0) fl Gran % 78.4 H (36.0-66.0) % Eos # (Auto) 0.10 (0-0.5) Absolute Lymphs (auto) 1.63 (1.0-4.6) Absolute Monos (auto) 0.39 (0.0-1.3) Lymphocytes % 16.4 L (24.0-44.0) % Monocytes % 3.9 (0.0-12.0) % Eosinophils % 1.0 (0.00-5.0) % Basophils % 0.3 (0.0-0.4) % Absolute Granulocytes 7.78 H (1.4-6.9) Basophils # 0.03 (0-0.4) Sodium 135 L (137-145) mmol/L Potassium 4.5 (3.5-5.1) mmol/L Chloride 99 (98-107) mmol/L Carbon Dioxide 14 L* (22-30) mmol/L Anion Gap 26.1 H (5-15) MEQ/L BUN 101 H (7-17) mg/dL Creatinine 10.32 H (0.52-1.04) mg/dL Estimated GFR 3.9 ML/MIN Glucose 173 H (74-106) mg/dL POC Glucometer (74 to 106) mg/dL Hemoglobin A1c (4.5-6.0) % Lactic Acid (0.4-2.0) Calcium 10.1 (8.4-10.2) mg/dL Total Bilirubin 0.40 (0.2-1.3) mg/dL AST 26 (14-36) U/L ALT 27 (0-35) U/L Alkaline Phosphatase 372 H (38-126) U/L Troponin I 0.016 (0.000-0.034) ng/mL Serum Total Protein 7.4 (6.3-8.2) g/dL Albumin 4.3 (3.5-5.0) g/dL Amylase (30-110) U/L Lipase 1055 H (23-300) U/L Urine Color (YELLOW) Urine Appearance (CLEAR) Urine pH (5-6) Ur Specific [place] (1.005-1.025) Urine Protein (Negative) Urine Ketones (NEGATIVE) Urine Blood (0-5) Luiz/ul Urine Nitrite (NEGATIVE) Urine Bilirubin (NEGATIVE) Urine Urobilinogen (0-1) mg/dL Ur Leukocyte Esterase (NEGATIVE) Urine WBC (Auto) (0-5) /HPF Urine RBC (Auto) (0-2) /HPF U Hyaline Cast (Auto) (0-2) /LPF U Epithel Cells (Auto) (FEW) /HPF Urine Bacteria (Auto) (NEGATIVE) /HPF Urine Mucus (Auto) (NEGATIVE) /HPF Urine Culture Reflexed (NO) Urine Glucose (NEGATIVE) mg/dL 06/24/20 06/24/20 06/24/20 Range/Units 11:02 11:03 14:00 WBC (4.0-10.5) K/mm3 RBC (4.1-5.4) M/mm3 Hgb (12.0-16.0) gm/dl Hct (35-47) % MCV (78-100) fl MCH (26-32) pg MCHC (32-36) g/dl RDW (11.5-14.0) % Plt Count (150-450) K/mm3 MPV (7.5-11.0) fl Gran % (36.0-66.0) % Eos # (Auto) (0-0.5) Absolute Lymphs (auto) (1.0-4.6) Absolute Monos (auto) (0.0-1.3) Lymphocytes % (24.0-44.0) % Monocytes % (0.0-12.0) % Eosinophils % (0.00-5.0) % Basophils % (0.0-0.4) % Absolute Granulocytes (1.4-6.9) Basophils # (0-0.4) Sodium (137-145) mmol/L Potassium (3.5-5.1) mmol/L Chloride (98-107) mmol/L Carbon Dioxide (22-30) mmol/L Anion Gap (5-15) MEQ/L BUN (7-17) mg/dL Creatinine (0.52-1.04) mg/dL Estimated GFR ML/MIN Glucose (74-106) mg/dL POC Glucometer (74 to 106) mg/dL Hemoglobin A1c (4.5-6.0) % Lactic Acid 1.6 (0.4-2.0) Calcium (8.4-10.2) mg/dL Total Bilirubin (0.2-1.3) mg/dL AST (14-36) U/L ALT (0-35) U/L Alkaline Phosphatase (38-126) U/L Troponin I 0.012 (0.000-0.034) ng/mL Serum Total Protein (6.3-8.2) g/dL Albumin (3.5-5.0) g/dL Amylase (30-110) U/L Lipase (23-300) U/L Urine Color YELLOW (YELLOW) Urine Appearance SLIGHTLY CLOUDY (CLEAR) Urine pH 5.0 (5-6) Ur Specific [place] 1.016 (1.005-1.025) Urine Protein 100 (Negative) Urine Ketones TRACE (NEGATIVE) Urine Blood MODERATE (0-5) Luiz/ul Urine Nitrite NEGATIVE (NEGATIVE) Urine Bilirubin SMALL (NEGATIVE) Urine Urobilinogen 2 (0-1) mg/dL Ur Leukocyte Esterase SMALL (NEGATIVE) Urine WBC (Auto) 6-10 (0-5) /HPF Urine RBC (Auto) 0-2 (0-2) /HPF U Hyaline Cast (Auto) 6-10 (0-2) /LPF U Epithel Cells (Auto) RARE (FEW) /HPF Urine Bacteria (Auto) FEW (NEGATIVE) /HPF Urine Mucus (Auto) SLIGHT (NEGATIVE) /HPF Urine Culture Reflexed YES (NO) Urine Glucose 50 (NEGATIVE) mg/dL 06/24/20 06/24/20 06/24/20 Range/Units 14:30 16:08 19:25 WBC (4.0-10.5) K/mm3 RBC (4.1-5.4) M/mm3 Hgb (12.0-16.0) gm/dl Hct (35-47) % MCV (78-100) fl MCH (26-32) pg MCHC (32-36) g/dl RDW (11.5-14.0) % Plt Count (150-450) K/mm3 MPV (7.5-11.0) fl Gran % (36.0-66.0) % Eos # (Auto) (0-0.5) Absolute Lymphs (auto) (1.0-4.6) Absolute Monos (auto) (0.0-1.3) Lymphocytes % (24.0-44.0) % Monocytes % (0.0-12.0) % Eosinophils % (0.00-5.0) % Basophils % (0.0-0.4) % Absolute Granulocytes (1.4-6.9) Basophils # (0-0.4) Sodium 138 (137-145) mmol/L Potassium 4.2 (3.5-5.1) mmol/L Chloride 111 H D (98-107) mmol/L Carbon Dioxide 13 L* (22-30) mmol/L Anion Gap 18.3 H (5-15) MEQ/L BUN 91 H (7-17) mg/dL Creatinine 8.34 H (0.52-1.04) mg/dL Estimated GFR 5.0 ML/MIN Glucose 107 H (74-106) mg/dL POC Glucometer 122 H (74 to 106) mg/dL Hemoglobin A1c 6.46 H (4.5-6.0) % Lactic Acid (0.4-2.0) Calcium 8.3 L D (8.4-10.2) mg/dL Total Bilirubin 0.30 (0.2-1.3) mg/dL AST 20 (14-36) U/L ALT 20 (0-35) U/L Alkaline Phosphatase 258 H (38-126) U/L Troponin I (0.000-0.034) ng/mL Serum Total Protein 5.6 L (6.3-8.2) g/dL Albumin 3.1 L (3.5-5.0) g/dL Amylase (30-110) U/L Lipase (23-300) U/L Urine Color (YELLOW) Urine Appearance (CLEAR) Urine pH (5-6) Ur Specific [place] (1.005-1.025) Urine Protein (Negative) Urine Ketones (NEGATIVE) Urine Blood (0-5) Luiz/ul Urine Nitrite (NEGATIVE) Urine Bilirubin (NEGATIVE) Urine Urobilinogen (0-1) mg/dL Ur Leukocyte Esterase (NEGATIVE) Urine WBC (Auto) (0-5) /HPF Urine RBC (Auto) (0-2) /HPF U Hyaline Cast (Auto) (0-2) /LPF U Epithel Cells (Auto) (FEW) /HPF Urine Bacteria (Auto) (NEGATIVE) /HPF Urine Mucus (Auto) (NEGATIVE) /HPF Urine Culture Reflexed (NO) Urine Glucose (NEGATIVE) mg/dL 06/24/20 06/25/20 06/25/20 Range/Units 20:35 04:00 05:45 WBC (4.0-10.5) K/mm3 RBC (4.1-5.4) M/mm3 Hgb (12.0-16.0) gm/dl Hct (35-47) % MCV (78-100) fl MCH (26-32) pg MCHC (32-36) g/dl RDW (11.5-14.0) % Plt Count (150-450) K/mm3 MPV (7.5-11.0) fl Gran % (36.0-66.0) % Eos # (Auto) (0-0.5) Absolute Lymphs (auto) (1.0-4.6) Absolute Monos (auto) (0.0-1.3) Lymphocytes % (24.0-44.0) % Monocytes % (0.0-12.0) % Eosinophils % (0.00-5.0) % Basophils % (0.0-0.4) % Absolute Granulocytes (1.4-6.9) Basophils # (0-0.4) Sodium 141 (137-145) mmol/L Potassium 4.0 (3.5-5.1) mmol/L Chloride 119 H (98-107) mmol/L Carbon Dioxide 11 L* (22-30) mmol/L Anion Gap 14.6 (5-15) MEQ/L BUN 78 H (7-17) mg/dL Creatinine 6.92 H (0.52-1.04) mg/dL Estimated GFR 6.1 ML/MIN Glucose 103 (74-106) mg/dL POC Glucometer 95 (74 to 106) mg/dL Hemoglobin A1c (4.5-6.0) % Lactic Acid 0.7 (0.4-2.0) Calcium 8.2 L (8.4-10.2) mg/dL Total Bilirubin 0.30 (0.2-1.3) mg/dL AST 19 (14-36) U/L ALT 17 (0-35) U/L Alkaline Phosphatase 236 H (38-126) U/L Troponin I (0.000-0.034) ng/mL Serum Total Protein 5.2 L (6.3-8.2) g/dL Albumin 2.7 L (3.5-5.0) g/dL Amylase 169 H (30-110) U/L Lipase 1394 H (23-300) U/L Urine Color (YELLOW) Urine Appearance (CLEAR) Urine pH (5-6) Ur Specific [place] (1.005-1.025) Urine Protein (Negative) Urine Ketones (NEGATIVE) Urine Blood (0-5) Luiz/ul Urine Nitrite (NEGATIVE) Urine Bilirubin (NEGATIVE) Urine Urobilinogen (0-1) mg/dL Ur Leukocyte Esterase (NEGATIVE) Urine WBC (Auto) (0-5) /HPF Urine RBC (Auto) (0-2) /HPF U Hyaline Cast (Auto) (0-2) /LPF U Epithel Cells (Auto) (FEW) /HPF Urine Bacteria (Auto) (NEGATIVE) /HPF Urine Mucus (Auto) (NEGATIVE) /HPF Urine Culture Reflexed (NO) Urine Glucose (NEGATIVE) mg/dL 06/25/20 06/25/20 Range/Units 06:00 06:31 WBC 6.9 (4.0-10.5) K/mm3 RBC 2.68 L (4.1-5.4) M/mm3 Hgb 8.1 L D (12.0-16.0) gm/dl Hct 26.8 L (35-47) % MCV 100.0 (78-100) fl MCH 30.2 (26-32) pg MCHC 30.2 L (32-36) g/dl RDW 15.4 H (11.5-14.0) % Plt Count 183 D (150-450) K/mm3 MPV 11.5 H (7.5-11.0) fl Gran % 57.7 (36.0-66.0) % Eos # (Auto) 0.23 (0-0.5) Absolute Lymphs (auto) 2.16 (1.0-4.6) Absolute Monos (auto) 0.51 (0.0-1.3) Lymphocytes % 31.2 (24.0-44.0) % Monocytes % 7.4 (0.0-12.0) % Eosinophils % 3.3 (0.00-5.0) % Basophils % 0.4 (0.0-0.4) % Absolute Granulocytes 3.99 (1.4-6.9) Basophils # 0.03 (0-0.4) Sodium (137-145) mmol/L Potassium (3.5-5.1) mmol/L Chloride (98-107) mmol/L Carbon Dioxide (22-30) mmol/L Anion Gap (5-15) MEQ/L BUN (7-17) mg/dL Creatinine (0.52-1.04) mg/dL Estimated GFR ML/MIN Glucose (74-106) mg/dL POC Glucometer 98 (74 to 106) mg/dL Hemoglobin A1c (4.5-6.0) % Lactic Acid (0.4-2.0) Calcium (8.4-10.2) mg/dL Total Bilirubin (0.2-1.3) mg/dL AST (14-36) U/L ALT (0-35) U/L Alkaline Phosphatase (38-126) U/L Troponin I (0.000-0.034) ng/mL Serum Total Protein (6.3-8.2) g/dL Albumin (3.5-5.0) g/dL Amylase (30-110) U/L Lipase (23-300) U/L Urine Color (YELLOW) Urine Appearance (CLEAR) Urine pH (5-6) Ur Specific [place] (1.005-1.025) Urine Protein (Negative) Urine Ketones (NEGATIVE) Urine Blood (0-5) Luiz/ul Urine Nitrite (NEGATIVE) Urine Bilirubin (NEGATIVE) Urine Urobilinogen (0-1) mg/dL Ur Leukocyte Esterase (NEGATIVE) Urine WBC (Auto) (0-5) /HPF Urine RBC (Auto) (0-2) /HPF U Hyaline Cast (Auto) (0-2) /LPF U Epithel Cells (Auto) (FEW) /HPF Urine Bacteria (Auto) (NEGATIVE) /HPF Urine Mucus (Auto) (NEGATIVE) /HPF Urine Culture Reflexed (NO) Urine Glucose (NEGATIVE) mg/dL Radiology Exams: Radiology Procedures Category Date Time Status ABDOMEN AND PELVIS W/0 CONTRAS [CT] Routine Exams 06/25/20 07:[address]/ABDOMEN AND PELVIS W/0 CONTRAS Indication: Nausea, vomiting, weakness, and elevated amylase/lipase. Multiple contiguous axial images obtained through the abdomen and pelvis without contrast as ordered. Comparison: None Lung bases demonstrates fibrosis/scarring and minimal bilateral dependent atelectasis. No infiltrate or effusion. Heart is borderline enlarged. Small hiatal hernia. Noncontrasted stomach and bowel loops appear nonobstructed. Normal appendix. Scattered sigmoid diverticulosis. Head and body of the pancreas appears prominent/edematous with peripancreatic stranding favoring acute pancreatitis. Adjacent duodenal circumferential wall thickening presumed reactive. Tiny inferior perihepatic and pelvic free fluid. No walled off fluid collection or free air. Previous cholecystectomy and hysterectomy. Remaining liver, spleen, adrenal glands, kidneys, ureters, and bladder appear unremarkable for noncontrast exam. Mild aortoiliac calcifications without AAA. Osseous structures demonstrates mild osteopenia, mild/moderate degenerative spondylosis throughout the thoracolumbar spine, and left L5 spondylolysis with 2-3 mm spondylolisthesis. Impression: 1. CT findings favoring acute pancreatitis as detailed with tiny free fluid. No walled off fluid collection or free air. 2. Incidental small hiatal hernia, sigmoid diverticulosis, and chronic bony findings. Assessment/Plan (1) Pancreatitis Current Visit: Yes Status: Acute Qualifiers: Chronicity: acute Pancreatitis type: unspecified pancreatitis type Acute pancreatitis complication: unspecified Qualified Code(s): K85.90 - Acute pancreatitis without necrosis or infection, unspecified Assessment & Plan: Chief Complaint Diagnosis DEHYDRATION, ARF Allergies Allergy/AdvReac Type Severity Reaction Status Date / Time No Known Drug Allergies Allergy Verified 06/24/20 10:37 Vital Signs (Last 24 hours) Temp Pulse Resp BP Pulse Ox 06/25/20 07:01 98.7 F 67 18 91/44 94 L 06/25/20 06:59 94 L 06/25/20 04:00 97.5 F 79 17 83/43 97 06/24/20 23:47 98.0 F 79 16 89/43 96 06/24/20 21:30 71 87/40 06/24/20 20:11 94 L 06/24/20 20:00 98.2 F 71 17 89/46 98 06/24/20 16:00 98.1 F 79 18 88/47 93 L 06/24/20 13:31 94 L 06/24/20 12:20 98.5 F 69 16 91/44 98 06/24/20 12:01 68 16 84/39 94 L 06/24/20 11:56 99 06/24/20 11:05 72 18 83/40 99 06/24/20 10:22 98.3 F 78 88/45 100 Home Medications Medication Instructions Recorded Confirmed Last Taken Type Empagliflozin [Jardiance] 10 mg PO QAM 06/24/20 06/24/20 06/23/20 History Lisinopril/Hydrochlorothiazide 1 tab PO DAILY 06/24/20 06/24/20 06/23/20 History [Lisinopril-Hctz 10-12.5 mg Tab] Ondansetron HCl 4 mg SL Q8H 06/24/20 06/24/20 06/23/20 History Simvastatin 40 mg PO HS 06/24/20 06/24/20 06/23/20 History allopurinoL [Allopurinol] 300 mg PO BID 06/24/20 06/24/20 06/23/20 History Current Medications Generic Name Dose Route Start Last Admin Trade Name Freq PRN Reason Stop Dose Admin Acetaminophen 650 mg 06/24/20 16:22 06/25/20 06:39 Tylenol 325 Mg PO 07/24/20 16:21 650 mg Q4H PRN PRN Administration PAIN AND/OR FEVER Aspirin 81 mg 06/24/20 14:00 06/24/20 14:35 Ecotrin 81 Mg PO 07/24/20 13:59 Not Given DAILY RAMILA Sodium Chloride 1,000 mls @ 150 mls/hr 06/24/20 12:25 06/25/20 08:05 Sodium Chloride 0.9% 1000 Ml IV 07/24/20 12:24 150 mls/hr .Q6H40M RAMILA Administration Ceftriaxone Sodium/Dextrose 1 g in 50 mls @ 100 mls/hr 06/25/20 10:00 Rocephin 1 Gm-D5w 50 Ml Bag IV 07/25/20 09:59 Q24H10 RAMILA Insulin Human Regular 0 unit 06/24/20 12:25 Humulin R SQ 07/24/20 12:24 UD PRN HYPERGLYCEMIA Metoprolol Succinate 50 mg 06/24/20 14:00 06/24/20 21:01 Toprol Xl 50 Mg PO 07/24/20 13:59 Not Given BID RAMILA Ondansetron HCl 4 mg 06/24/20 12:25 06/24/20 23:08 Zofran 4 Mg/2 Ml Vial IV 07/24/20 12:24 4 mg Q6H PRN PRN Administration NAUSEA/VOMITING Discontinued Medications Generic Name Dose Route Start Last Admin Trade Name Freq PRN Reason Stop Dose Admin Sodium Chloride 1,000 mls @ 999 mls/hr 06/24/20 10:20 06/24/20 11:50 Sodium Chloride 0.9% 1000 Ml IV 06/24/20 11:20 Infused .Q1H1M STA Infusion Sodium Chloride Confirm 06/24/20 10:46 Sodium Chloride 0.9% 1000 Ml Administered 06/24/20 10:47 Dose 1,000 mls @ ud .ROUTE .STK-MED ONE Sodium Chloride Confirm 06/24/20 11:32 Sodium Chloride 0.9% 1000 Ml Administered 06/24/20 11:33 Dose 1,000 mls @ ud .ROUTE .STK-MED ONE Sodium Chloride 1,000 mls @ 999 mls/hr 06/24/20 11:51 06/24/20 11:52 Sodium Chloride 0.9% 1000 Ml IV 06/24/20 12:51 999 mls/hr .Q1H1M STA Administration Sodium Chloride 1,000 mls @ 999 mls/hr 06/24/20 16:16 06/24/20 16:44 Sodium Chloride 0.9% 1000 Ml IV 06/24/20 17:16 999 mls/hr .Q1H1M STA Administration Sodium Chloride 1,000 mls @ 999 mls/hr 06/24/20 17:30 06/24/20 17:38 Sodium Chloride 0.9% 1000 Ml IV 06/24/20 18:00 999 mls/hr .Q1H1M RAMILA Administration Sodium Chloride 1,000 mls @ 999 mls/hr 06/24/20 21:56 06/25/20 00:08 Sodium Chloride 0.9% 1000 Ml IV 06/24/20 22:56 999 mls/hr .Q1H1M STA Administration Ondansetron HCl 4 mg 06/24/20 10:20 06/24/20 10:49 Zofran 4 Mg/2 Ml Vial IV 06/24/20 10:21 4 mg STAT ONE Administration Ondansetron HCl Confirm 06/24/20 10:46 Zofran 4 Mg/2 Ml Vial Administered 06/24/20 10:47 Dose 4 mg .ROUTE .STK-MED ONE Pantoprazole Sodium 40 mg 06/24/20 10:20 06/24/20 10:49 Protonix 40 Mg Iv IV 06/24/20 10:21 40 mg STAT ONE Administration Pantoprazole Sodium Confirm 06/24/20 10:46 Protonix 40 Mg Iv Administered 06/24/20 10:47 Dose 40 mg IV .STK-MED ONE Intake & Output (Last 24 hours) 06/22/20 06/23/20 06/24/20 06/25/20 11:59 11:59 11:59 11:59 Intake Total 9956 Output Total 1350 Balance 8606 Weight 80.286 kg 80.3 kg Microbiology Results (Last 24 hours) 06/25/20 06:30 Blood Blood Culture Gram Stain - Pending 06/25/20 06:30 Blood Blood Culture - Pending 06/24/20 11:02 Urine, Void Urine Culture - Pending Laboratory Results (Last 24 hours) 06/25/20 06/25/20 06/25/20 06:31 06:00 05:45 WBC 6.9 RBC 2.68 L Hgb 8.1 L D Hct 26.8 L MCV 100.0 MCH 30.2 MCHC 30.2 L RDW 15.4 H Plt Count 183 D MPV 11.5 H Gran % 57.7 Eos # (Auto) 0.23 Absolute Lymphs (auto) 2.16 Absolute Monos (auto) 0.51 Lymphocytes % 31.2 Monocytes % 7.4 Eosinophils % 3.3 Basophils % 0.4 Absolute Granulocytes 3.99 Basophils # 0.03 Sodium 141 Potassium 4.0 Chloride 119 H Carbon Dioxide 11 L* Anion Gap 14.6 BUN 78 H Creatinine 6.92 H Estimated GFR 6.1 Glucose 103 POC Glucometer 98 Hemoglobin A1c Lactic Acid Calcium 8.2 L Total Bilirubin 0.30 AST 19 ALT 17 Alkaline Phosphatase 236 H Troponin I Serum Total Protein 5.2 L Albumin 2.7 L Amylase 169 H Lipase 1394 H Urine Color Urine Appearance Urine pH Ur Specific [place] Urine Protein Urine Ketones Urine Blood Urine Nitrite Urine Bilirubin Urine Urobilinogen Ur Leukocyte Esterase Urine WBC (Auto) Urine RBC (Auto) U Hyaline Cast (Auto) U Epithel Cells (Auto) Urine Bacteria (Auto) Urine Mucus (Auto) Urine Culture Reflexed Urine Glucose 06/25/20 06/24/20 06/24/20 04:00 20:35 19:25 WBC RBC Hgb Hct MCV MCH MCHC RDW Plt Count MPV Gran % Eos # (Auto) Absolute Lymphs (auto) Absolute Monos (auto) Lymphocytes % Monocytes % Eosinophils % Basophils % Absolute Granulocytes Basophils # Sodium 138 Potassium 4.2 Chloride 111 H D Carbon Dioxide 13 L* Anion Gap 18.3 H BUN 91 H Creatinine 8.34 H Estimated GFR 5.0 Glucose 107 H POC Glucometer 95 Hemoglobin A1c Lactic Acid 0.7 Calcium 8.3 L D Total Bilirubin 0.30 AST 20 ALT 20 Alkaline Phosphatase 258 H Troponin I Serum Total Protein 5.6 L Albumin 3.1 L Amylase Lipase Urine Color Urine Appearance Urine pH Ur Specific [place] Urine Protein Urine Ketones Urine Blood Urine Nitrite Urine Bilirubin Urine Urobilinogen Ur Leukocyte Esterase Urine WBC (Auto) Urine RBC (Auto) U Hyaline Cast (Auto) U Epithel Cells (Auto) Urine Bacteria (Auto) Urine Mucus (Auto) Urine Culture Reflexed Urine Glucose 06/24/20 06/24/20 06/24/20 16:08 14:30 14:00 WBC RBC Hgb Hct MCV MCH MCHC RDW Plt Count MPV Gran % Eos # (Auto) Absolute Lymphs (auto) Absolute Monos (auto) Lymphocytes % Monocytes % Eosinophils % Basophils % Absolute Granulocytes Basophils # Sodium Potassium Chloride Carbon Dioxide Anion Gap BUN Creatinine Estimated GFR Glucose POC Glucometer 122 H Hemoglobin A1c 6.46 H Lactic Acid Calcium Total Bilirubin AST ALT Alkaline Phosphatase Troponin I 0.012 Serum Total Protein Albumin Amylase Lipase Urine Color Urine Appearance Urine pH Ur Specific [place] Urine Protein Urine Ketones Urine Blood Urine Nitrite Urine Bilirubin Urine Urobilinogen Ur Leukocyte Esterase Urine WBC (Auto) Urine RBC (Auto) U Hyaline Cast (Auto) U Epithel Cells (Auto) Urine Bacteria (Auto) Urine Mucus (Auto) Urine Culture Reflexed Urine Glucose 06/24/20 06/24/20 06/24/20 11:03 11:02 11:00 WBC RBC Hgb Hct MCV MCH MCHC RDW Plt Count MPV Gran % Eos # (Auto) Absolute Lymphs (auto) Absolute Monos (auto) Lymphocytes % Monocytes % Eosinophils % Basophils % Absolute Granulocytes Basophils # Sodium Potassium Chloride Carbon Dioxide Anion Gap BUN Creatinine Estimated GFR Glucose POC Glucometer Hemoglobin A1c Lactic Acid 1.6 Calcium Total Bilirubin AST ALT Alkaline Phosphatase Troponin I 0.016 Serum Total Protein Albumin Amylase Lipase Urine Color YELLOW Urine Appearance SLIGHTLY CLOUDY Urine pH 5.0 Ur Specific [place] 1.016 Urine Protein 100 Urine Ketones TRACE Urine Blood MODERATE Urine Nitrite NEGATIVE Urine Bilirubin SMALL Urine Urobilinogen 2 Ur Leukocyte Esterase SMALL Urine WBC (Auto) 6-10 Urine RBC (Auto) 0-2 U Hyaline Cast (Auto) 6-10 U Epithel Cells (Auto) RARE Urine Bacteria (Auto) FEW Urine Mucus (Auto) SLIGHT Urine Culture Reflexed YES Urine Glucose 50 06/24/20 06/24/20 11:00 11:00 WBC 9.9 RBC 3.39 L Hgb 10.3 L Hct 33.3 L MCV 98.2 MCH 30.4 MCHC 30.9 L RDW 15.3 H Plt Count 295 MPV 11.1 H Gran % 78.4 H Eos # (Auto) 0.10 Absolute Lymphs (auto) 1.63 Absolute Monos (auto) 0.39 Lymphocytes % 16.4 L Monocytes % 3.9 Eosinophils % 1.0 Basophils % 0.3 Absolute Granulocytes 7.78 H Basophils # 0.03 Sodium 135 L Potassium 4.5 Chloride 99 Carbon Dioxide 14 L* Anion Gap 26.1 H BUN 101 H Creatinine 10.32 H Estimated GFR 3.9 Glucose 173 H POC Glucometer Hemoglobin A1c Lactic Acid Calcium 10.1 Total Bilirubin 0.40 AST 26 ALT 27 Alkaline Phosphatase 372 H Troponin I Serum Total Protein 7.4 Albumin 4.3 Amylase Lipase 1055 H Urine Color Urine Appearance Urine pH Ur Specific [place] Urine Protein Urine Ketones Urine Blood Urine Nitrite Urine Bilirubin Urine Urobilinogen Ur Leukocyte Esterase Urine WBC (Auto) Urine RBC (Auto) U Hyaline Cast (Auto) U Epithel Cells (Auto) Urine Bacteria (Auto) Urine Mucus (Auto) Urine Culture Reflexed Urine Glucose Orders (Last 24 hours) Category Date Time Status Up Ad Felecia ROUTINE Activity 06/24/20 12:25 Active Admit as Inpatient ROUTINE Care 06/24/20 12:25 Active Code Status Order ROUTINE Care 06/24/20 12:25 Active IV Care Q6H Care 06/24/20 12:25 Active IV Insertion STAT Care 06/24/20 11:04 Completed IV Insertion-2nd Peripheral STAT Care 06/24/20 11:04 Completed Miscellaneous Nursing Order ROUTINE Care 06/24/20 12:25 Completed POCT Glucose Check ACHS Care 06/24/20 12:25 Active Consistent Carbohydrate Diet 1800 Calorie Diet 06/24/20 Dinner Active ABDOMEN AND PELVIS W/0 CONTRAS [CT] Routine Exams 06/25/20 07:22 Completed AMYLASE Routine Lab 06/25/20 05:45 Completed BLOOD CULTURE Urgent Lab 06/25/20 Received CBC W DIFF AM.LAB Lab 06/26/20 04:00 Ordered CBC W DIFF Routine Lab 06/25/20 06:00 Completed CBC W DIFF Stat Lab 06/24/20 11:00 Completed CMP AM.LAB Lab 06/25/20 05:45 Completed CMP AM.LAB Lab 06/26/20 04:00 Ordered CMP Stat Lab 06/24/20 11:00 Completed CMP Urgent Lab 06/24/20 19:25 Completed CULTURE,URINE Stat Lab 06/24/20 11:02 Received HEMOGLOBIN A1C Urgent Lab 06/24/20 14:30 Completed LIPASE Routine Lab 06/25/20 05:45 Completed LIPASE Stat Lab 06/24/20 11:00 Completed Lactic Acid AM.LAB Lab 06/25/20 04:00 Completed Lactic Acid Stat Lab 06/24/20 11:03 Completed POCT GLUCOSE Stat Lab 06/24/20 16:08 Completed POCT GLUCOSE Stat Lab 06/24/20 20:35 Completed POCT GLUCOSE Stat Lab 06/25/20 06:31 Completed TROPONIN Q3H Lab 06/24/20 11:00 Completed TROPONIN Q3H Lab 06/24/20 14:00 Completed UA W/RFX UR CULTURE Stat Lab 06/24/20 11:02 Completed Acetaminophen 325 mg [Tylenol 325 mg] Med 06/24/20 16:22 Active 650 mg PO Q4H PRN PRN Aspirin EC 81 mg [Ecotrin 81 mg] Med 06/24/20 14:00 Active 81 mg PO DAILY Ceftriaxone 1 GM/50 ML PREMIX* [ROCEPHIN 1 Gm-D5w 50 ml Med 06/25/20 10:00 Active Bag] 1 g in 50 ml IV Q24H10 Flu Vacc [id number](65Yr [id number])/Pf [Fluzone High-Dose Quad Med 06/26/20 10:00 Once 2019-] 240 mcg IM .ONCE ONE Insulin Regular, Human [Humulin R] Med 06/24/20 12:25 Active See Dose Instructions SQ UD PRN Metoprolol Succinate 50 mg [Toprol Xl 50 MG] Med 06/24/20 14:00 Active 50 mg PO BID NaCl 0.9% 1000 ml [Sodium Chloride 0.9% 1000 ML] 1,000 Med 06/24/20 10:46 Discontinued ml .ROUTE UD NaCl 0.9% 1000 ml [Sodium Chloride 0.9% 1000 ML] 1,000 Med 06/24/20 11:32 Discontinued ml .ROUTE UD NaCl 0.9% 1000 ml [Sodium Chloride 0.9% 1000 ML] 1,000 Med 06/24/20 12:25 Active ml IV 150 mls/hr NaCl 0.9% 1000 ml [Sodium Chloride 0.9% 1000 ML] 1,000 Med 06/24/20 10:20 Discontinued ml IV 999 mls/hr NaCl 0.9% 1000 ml [Sodium Chloride 0.9% 1000 ML] 1,000 Med 06/24/20 11:51 Discontinued ml IV 999 mls/hr NaCl 0.9% 1000 ml [Sodium Chloride 0.9% 1000 ML] 1,000 Med 06/24/20 16:16 Discontinued ml IV 999 mls/hr NaCl 0.9% 1000 ml [Sodium Chloride 0.9% 1000 ML] 1,000 Med 06/24/20 17:30 Discontinued ml IV 999 mls/hr NaCl 0.9% 1000 ml [Sodium Chloride 0.9% 1000 ML] 1,000 Med 06/24/20 21:56 Discontinued ml IV 999 mls/hr Ondansetron HCl 4 mg/2 ml [Zofran 4 MG/2 ML VIAL] Med 06/24/20 10:46 Discontinued 4 mg .ROUTE .STK-MED ONE Ondansetron HCl 4 mg/2 ml [Zofran 4 MG/2 ML VIAL] Med 06/24/20 12:25 Active 4 mg IV Q6H PRN PRN Ondansetron HCl 4 mg/2 ml [Zofran 4 MG/2 ML VIAL] Med 06/24/20 10:20 Discontinued 4 mg IV STAT ONE Pantoprazole 40 mg [Protonix 40 mg IV] Med 06/24/20 10:46 Discontinued 40 mg IV .STK-MED ONE Pantoprazole 40 mg [Protonix 40 mg IV] Med 06/24/20 10:20 Discontinued 40 mg IV STAT ONE Oxygen Nasal Cannula 2 lpm RT 06/24/20 12:25 Active Pulse Oximetry .spot check RT 06/24/20 20:11 Active Patient Care Notes (Last 24 hours) 06/25/20 07:29 Nursing Note by Ruma Beatty order given by dr. white to change blood cultures to just 1 since pt is a hard stick. Initialized on 06/25/20 07:29 - END OF NOTE 06/25/20 07:15 (created 06/25/20 07:30) Nursing Note by Ruma Beatty dr. rounded on pt. orders given to get ct scan without contrast, blood cultures, rocephin 1gm daily and continue ivf at 150/hr. Initialized on 06/25/20 07:30 - END OF NOTE 06/25/20 04:22 PUBLIC POLICY COORDINATOR Note by Marta Magdaleno RN aware of pts BP being 83/43 Initialized on 06/25/20 04:22 - END OF NOTE 06/25/20 04:08 Nursing Note by Angie Galvez This nurse called Dr. White and reported pt BP 83/43, appx 5L fluids in and 700mL urine out on this shift. Patient now experiencing slight SOB with exertion, crackles present in posterior bilateral lower lobes. Mild nonpitting edema present to BUE. Patient has intermittent dizziness/lightheadedness with ambulation. No new orders at this time. Will continue to monitor patient. Initialized on 06/25/20 04:08 - END OF NOTE 06/24/20 22:00 Nursing Note by Angie Galvez This nurse called Dr. White and notified him of critical CO2 level of 13, continued hypotension BP 87/40 following 2L NS bolus, fluid intake of 4800mL and only 300mL urine out. Order received for 3L NS 0.9% NACL bolus. New orders explained to patient. She verbalizes understanding. Also explained symptoms to report such as dyspnea and pain at IV site. Explained need to closely monitor urine output. Initialized on 06/24/20 22:00 - END OF NOTE 06/24/20 18:34 Nursing Note by Ruma Beatty assisted to bathroom x1 assist, voided 300cc clear yellow urine. Initialized on 06/24/20 18:34 - END OF NOTE 06/24/20 16:20 (created 06/24/20 17:24) Nursing Note by Ruma Beatty dr. updated on bp, new orders for 2L NS. 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 care use Diabetes mellitus complication status: with ketoacidosis Diabetes mellitus complication detail: without coma Qualified Code(s): E11.10 - Type 2 diabetes mellitus with ketoacidosis without coma (4) Metabolic acidosis due to diabetes mellitus Current Visit: Yes Status: Acute Code(s): E11.69 - TYPE 2 DIABETES MELLITUS WITH OTHER SPECIFIED COMPLICATION; E87.2 - ACIDOSIS (5) Hypertension Current Visit: Yes Status: Chronic Qualifiers: Hypertension type: essential hypertension Qualified Code(s): I10 - Essential (primary) hypertension Code(s): I10 - ESSENTIAL (PRIMARY) HYPERTENSION (6) Dehydration Current Visit: Yes Status: Acute Code(s): E86.0 - DEHYDRATION
[2020-06-25] MEDS: PROTONIX 40 MG IV IV SCH (09:22)
[2020-06-25] MEDS: ECOTRIN 81 MG PO SCH (09:23)
[2020-06-25] MEDS: ROCEPHIN 1 Gm-D5w 50 ml Bag** 1 G/50 ML IVPB IV SCH (09:23)
[2020-06-25] MEDS: Zofran 4 MG/2 ML VIAL IV PRN ×3 (09:29→20:55)
[2020-06-25] MEDS: Toprol Xl 50 MG PO SCH ×2 (09:34→20:56)
[2020-06-25] MEDS ORDERED: NON-FORMULARY ITEM (Empagliflozin [Jardiance] 10 MG) PO SCH (10:00)
[2020-06-25] MEDS ORDERED: NON-FORMULARY ITEM (Lisinopril/Hydrochlorothiazide [Lisinopril-Hctz 10-12.5 Mg Tab] 1 TAB) PO SCH (10:00)
[2020-06-25] MEDS ORDERED: FLUZONE HIGH-DOSE QUAD 2020-21 IM ONE (10:00)
[2020-06-26] MEDS: Sodium Chloride 0.9% 1000 ML 1,000 ML IV SCH ×4 (02:54→22:10)
[2020-06-26] MEDS: Zofran 4 MG/2 ML VIAL IV PRN ×3 (02:54→12:19)
[2020-06-26] MEDS: Sodium Chloride 0.9% 10 ML FLUSH Syringe IV SCH ×3 (03:14→21:26)
[2020-06-26 05:24] LABS: Absolute Neutrophil Ct (ANC) 3.47 (1.4-6.9); BASOPHIL % 0.2 % (0.0-0.4); Basophil (Absolute #) 0.01 (0-0.4); Eosinophil % 4.7 % (0.00-5.0); Eosinophil (Absolute #) 0.27 (0-0.5); Hemoglobin 7.9 gm/dl (12.0-16.0); Lymphocyte (Absolute #) 1.73 (1.0-4.6); Mean Cell Volume 100.4 fl (78-100); Mean Corpuscular Hemoglobin 30.5 pg (26-32); Mean Corpuscular Hgb Concent. 30.4 g/dl (32-36); Mean Platelet Volume 11.5 fl (7.5-11.0); Monocyte (Absolute #) 0.29 (0.0-1.3); Neutrophil % 60.1 % (36.0-66.0); Platelet Count 173 K/mm3 (150-450); Red Blood Count 2.59 M/mm3 (4.1-5.4); Red Cell Distribution Width 15.7 % (11.5-14.0); White Blood Count 5.8 K/mm3 (4.0-10.5)
[2020-06-26 05:36] LABS: BILIRUBIN,TOTAL 0.4 mg/dL (0.2-1.3); Calcium 8.8 mg/dL (8.4-10.2); Creatinine 1 4.79 mg/dL (0.52-1.04); EST GLOMERULAR FILTRATION RATE 9.4 ML/MIN; Potassium 3.9 mmol/L (3.5-5.1); Total Protein 5.7 g/dL (6.3-8.2)
[2020-06-26] MEDS: PROTONIX 40 MG IV IV SCH (08:52)
[2020-06-26] MEDS: ROCEPHIN 1 Gm-D5w 50 ml Bag** 1 G/50 ML IVPB IV SCH (08:57)
[2020-06-26] MEDS: Toprol Xl 50 MG PO SCH ×2 (08:58→21:27)
[2020-06-26] MEDS: ECOTRIN 81 MG PO SCH (08:58)
[2020-06-26 09:43] LABS: AMYLASE 158 U/L (30-110); LIPASE 930 U/L (23-300)
[2020-06-26] MEDS ORDERED: FLUZONE HIGH-DOSE QUAD 2020-21 IM ONE (10:00)
[2020-06-26] MEDS: Phenergan 25 MG INJ IV PRN (15:34)
--- NOTE | 2020-06-26 20:33 | PCM.NOTE ---
Date and Time: 06/26/202030 Subjective Assessment: still c/o nausea, vomiting - Review of Systems Constitutional: No Fever, No Chills Eyes: No Symptoms Ears, Nose, & Throat: No Symptoms Respiratory: No Cough, No Short Of Breath Cardiac: No Chest Pain, No Edema, No Syncope Abdominal/Gastrointestinal: Abdominal Pain, Nausea, Vomiting, No Diarrhea Genitourinary Symptoms: No Dysuria Musculoskeletal: No Back Pain, No Neck Pain Skin: No Rash Neurological: No Dizziness, No Focal Weakness, No Sensory Changes Psychological: No Symptoms Endocrine: No Symptoms Hematologic/Lymphatic: No Symptoms Immunological/Allergic: No Symptoms Objective Exam General Appearance: no apparent distress, alert Neurologic Exam: alert, oriented x 3, cooperative, normal mood/affect, nml cerebellar function, sensation nml, No motor deficits Skin Exam: normal color, warm, dry Eye Exam: PERRL, EOMI, eyes nml inspection Ears, Nose, Throat Exam: normal ENT inspection, pharynx normal, moist mucous membranes Neck Exam: normal inspection, non-tender, supple, full range of motion Respiratory Exam: normal breath sounds, lungs clear, No respiratory distress Cardiovascular Exam: regular rate/rhythm, normal heart sounds Gastrointestinal/Abdomen Exam: soft, No tenderness, No mass Extremity Exam: normal inspection, normal range of motion Back Exam: normal inspection, normal range of motion, No CVA tenderness, No vertebral tenderness Pelvic Exam: deferred Rectal Exam: deferred OBJECTIVE DATA Vital Signs: Vital Signs - 24 hr Temp Pulse Resp BP BP Pulse Ox 06/26/20 19:10 98.3 F 74 18 123/54 94 L 06/26/20 16:00 98.1 F 78 16 112/55 95 06/26/20 12:00 98.3 F 62 20 95/46 98 06/26/20 07:42 98.2 F 65 16 101/49 96 06/26/20 03:45 97.8 F 70 16 88/44 96 06/25/20 23:56 98.1 F 70 19 99/50 98 Pain Assessment - Last Documented Pain Intensity 0 Pain Scale Used 0-10 Pain Scale Intake and Output: Intake & Output 06/24/20 06/25/20 06/26/20 06/27/20 11:59 11:59 11:59 11:59 Intake Total 9999 3024 2120 Output Total 1350 3550 1900 Balance 8606 -526 220 Weight 80.286 kg 80.3 kg 80.3 kg Lab Results: Lab Results-Last 24 Hours 06/25/20 06/26/20 06/26/20 Range/Units 20:29 04:47 04:47 WBC 5.8 (4.0-10.5) K/mm3 RBC 2.59 L (4.1-5.4) M/mm3 Hgb 7.9 L (12.0-16.0) gm/dl Hct 26.0 L (35-47) % MCV 100.4 H (78-100) fl MCH 30.5 (26-32) pg MCHC 30.4 L (32-36) g/dl RDW 15.7 H (11.5-14.0) % Plt Count 173 (150-450) K/mm3 MPV 11.5 H (7.5-11.0) fl Gran % 60.1 (36.0-66.0) % Eos # (Auto) 0.27 (0-0.5) Absolute Lymphs (auto) 1.73 (1.0-4.6) Absolute Monos (auto) 0.29 (0.0-1.3) Lymphocytes % 30.0 (24.0-44.0) % Monocytes % 5.0 (0.0-12.0) % Eosinophils % 4.7 (0.00-5.0) % Basophils % 0.2 (0.0-0.4) % Absolute Granulocytes 3.47 (1.4-6.9) Basophils # 0.01 (0-0.4) Sodium 142 (137-145) mmol/L Potassium 3.9 (3.5-5.1) mmol/L Chloride 119 H (98-107) mmol/L Carbon Dioxide 11 L* (22-30) mmol/L Anion Gap 15.0 (5-15) MEQ/L BUN 62 H (7-17) mg/dL Creatinine 4.79 H (0.52-1.04) mg/dL Estimated GFR 9.4 ML/MIN Glucose 111 H (74-106) mg/dL POC Glucometer 87 (74 to 106) mg/dL Calcium 8.8 (8.4-10.2) mg/dL Total Bilirubin 0.40 (0.2-1.3) mg/dL AST 26 (14-36) U/L ALT 19 (0-35) U/L Alkaline Phosphatase 232 H (38-126) U/L Serum Total Protein 5.7 L (6.3-8.2) g/dL Albumin 3.0 L (3.5-5.0) g/dL Amylase (30-110) U/L Lipase (23-300) U/L 06/26/20 06/26/20 06/26/20 Range/Units 05:00 07:27 11:31 WBC (4.0-10.5) K/mm3 RBC (4.1-5.4) M/mm3 Hgb (12.0-16.0) gm/dl Hct (35-47) % MCV (78-100) fl MCH (26-32) pg MCHC (32-36) g/dl RDW (11.5-14.0) % Plt Count (150-450) K/mm3 MPV (7.5-11.0) fl Gran % (36.0-66.0) % Eos # (Auto) (0-0.5) Absolute Lymphs (auto) (1.0-4.6) Absolute Monos (auto) (0.0-1.3) Lymphocytes % (24.0-44.0) % Monocytes % (0.0-12.0) % Eosinophils % (0.00-5.0) % Basophils % (0.0-0.4) % Absolute Granulocytes (1.4-6.9) Basophils # (0-0.4) Sodium (137-145) mmol/L Potassium (3.5-5.1) mmol/L Chloride (98-107) mmol/L Carbon Dioxide (22-30) mmol/L Anion Gap (5-15) MEQ/L BUN (7-17) mg/dL Creatinine (0.52-1.04) mg/dL Estimated GFR ML/MIN Glucose (74-106) mg/dL POC Glucometer 105 112 H (74 to 106) mg/dL Calcium (8.4-10.2) mg/dL Total Bilirubin (0.2-1.3) mg/dL AST (14-36) U/L ALT (0-35) U/L Alkaline Phosphatase (38-126) U/L Serum Total Protein (6.3-8.2) g/dL Albumin (3.5-5.0) g/dL Amylase 158 H (30-110) U/L Lipase 930 H (23-300) U/L 06/26/20 Range/Units 16:26 WBC (4.0-10.5) K/mm3 RBC (4.1-5.4) M/mm3 Hgb (12.0-16.0) gm/dl Hct (35-47) % MCV (78-100) fl MCH (26-32) pg MCHC (32-36) g/dl RDW (11.5-14.0) % Plt Count (150-450) K/mm3 MPV (7.5-11.0) fl Gran % (36.0-66.0) % Eos # (Auto) (0-0.5) Absolute Lymphs (auto) (1.0-4.6) Absolute Monos (auto) (0.0-1.3) Lymphocytes % (24.0-44.0) % Monocytes % (0.0-12.0) % Eosinophils % (0.00-5.0) % Basophils % (0.0-0.4) % Absolute Granulocytes (1.4-6.9) Basophils # (0-0.4) Sodium (137-145) mmol/L Potassium (3.5-5.1) mmol/L Chloride (98-107) mmol/L Carbon Dioxide (22-30) mmol/L Anion Gap (5-15) MEQ/L BUN (7-17) mg/dL Creatinine (0.52-1.04) mg/dL Estimated GFR ML/MIN Glucose (74-106) mg/dL POC Glucometer 109 H (74 to 106) mg/dL Calcium (8.4-10.2) mg/dL Total Bilirubin (0.2-1.3) mg/dL AST (14-36) U/L ALT (0-35) U/L Alkaline Phosphatase (38-126) U/L Serum Total Protein (6.3-8.2) g/dL Albumin (3.5-5.0) g/dL Amylase (30-110) U/L Lipase (23-300) U/L Radiology Exams: Radiology Procedures Category Date Time Status ABDOMEN AND PELVIS W/0 CONTRAS [CT] Routine Exams 06/25/20 07:22 Completed Multi-Disciplinary Progress Notes: Multi-Disciplinary Progress Notes 06/26/20 17:02 Physical Therapy Note by Yessenia Rodriguez.T. AGAPITO HELD TODAY PT. WAS VERY NAUSEOUS. HGB WAS LOW WELL. NURSE REPORTED SHE HAD JUST GIVEN HER PHENERGAN AND THAT SHE WAS ASLEEP. WILL ATTEMPT P.T. EVAL TOMORORW. YESSENIA RODRIGUEZ PT Initialized on 06/26/20 17:02 - END OF NOTE Assessment/Plan (1) Pancreatitis Current Visit: Yes Status: Acute Qualifiers: Chronicity: acute Pancreatitis type: unspecified pancreatitis type Acute pancreatitis complication: no infection or necrosis Qualified Code(s): K85.90 - Acute pancreatitis without necrosis or infection, unspecified Code(s): K85.90 - ACUTE PANCREATITIS WITHOUT NECROSIS OR INFECTION, UNSP (2) Acute renal failure syndrome Current Visit: Yes Status: Acute Qualifiers: Acute renal failure type: unspecified Qualified Code(s): N17.9 - Acute kidney failure, unspecified (3) Type 2 diabetes mellitus Current Visit: Yes Status: Acute Qualifiers: Diabetes mellitus alf insulin use: without alf use Diabetes mellitus complication status: with ketoacidosis Diabetes mellitus complication detail: without coma Qualified Code(s): E11.10 - Type 2 diabetes mellitus with ketoacidosis without coma (4) Metabolic acidosis due to diabetes mellitus Current Visit: Yes Status: Acute Code(s): E11.69 - TYPE 2 DIABETES MELLITUS WITH OTHER SPECIFIED COMPLICATION; E87.2 - ACIDOSIS (5) Hypertension Current Visit: Yes Status: Chronic Qualifiers: Hypertension type: essential hypertension Qualified Code(s): I10 - Essential (primary) hypertension Code(s): I10 - ESSENTIAL (PRIMARY) HYPERTENSION (6) Dehydration Current Visit: Yes Status: Resolved Code(s): E86.0 - DEHYDRATION
[2020-06-27] MEDS: Phenergan 25 MG INJ IV PRN ×2 (02:08→23:28)
[2020-06-27] MEDS: Sodium Chloride 0.9% 1000 ML 1,000 ML IV SCH ×4 (04:45→21:05)
[2020-06-27 05:15] LABS: BASOPHIL % 0.2 % (0.0-0.4); Basophil (Absolute #) 0.01 (0-0.4); Eosinophil % 4.3 % (0.00-5.0); Eosinophil (Absolute #) 0.24 (0-0.5); Hematocrit 25.5 % (35-47); Hemoglobin 7.6 gm/dl (12.0-16.0); Lymphocyte (Absolute #) 1.55 (1.0-4.6); Lymphocytes % 27.6 % (24.0-44.0); Mean Corpuscular Hemoglobin 30.4 pg (26-32); Mean Corpuscular Hgb Concent. 29.8 g/dl (32-36); Mean Platelet Volume 11.8 fl (7.5-11.0); Monocyte (Absolute #) 0.31 (0.0-1.3); Monocytes % 5.5 % (0.0-12.0); Neutrophil % 62.4 % (36.0-66.0); Platelet Count 142 K/mm3 (150-450); Red Cell Distribution Width 16.1 % (11.5-14.0); White Blood Count 5.6 K/mm3 (4.0-10.5)
[2020-06-27] MEDS: Sodium Chloride 0.9% 10 ML FLUSH Syringe IV SCH ×3 (05:21→20:49)
[2020-06-27 05:32] LABS: ALBUMIN 2.9 g/dL (3.5-5.0); ANION GAP 17.2 MEQ/L (5-15); BILIRUBIN,TOTAL 0.4 mg/dL (0.2-1.3); Calcium 8.8 mg/dL (8.4-10.2); Potassium 3.8 mmol/L (3.5-5.1); Total Protein 5.4 g/dL (6.3-8.2)
[2020-06-27 05:36] LABS: Creatinine 1 3.17 mg/dL (0.52-1.04); EST GLOMERULAR FILTRATION RATE 15.1 ML/MIN
[2020-06-27] MEDS: PROTONIX 40 MG IV IV SCH (09:00)
[2020-06-27] MEDS: ROCEPHIN 1 Gm-D5w 50 ml Bag** 1 G/50 ML IVPB IV SCH (09:01)
[2020-06-27] MEDS: ECOTRIN 81 MG PO SCH (09:07)
[2020-06-27 09:17] LABS: A-aADO2 25; ABG HEMOGLOBIN 8.3; ABG POTASSIUM 3.8 (3.5-5.1); ARTERIAL BLD GAS O2 SATURATION 99.3 % (95-100); ARTERIAL BLOOD GAS BASE EXCESS -12.2 (-2.0-2.0); ARTERIAL BLOOD GAS FIO2 21 %; ARTERIAL BLOOD GAS PCO2 23 mmHg (35-45); ARTERIAL BLOOD GAS PO2 96 mmHg (75-100); ARTERIAL BLOOD GAS pH 7.32 (7.35-7.45); CARBOXYHEMOGLOBIN 1.1 % THgb (0.0-6.9); HCO3- 11.9 (22-28); HGB O2 SAT 97.1 g/dF (94-100); Methhemoglobin 1.2 % (1.4-1.5); paO2 pAO1 0.79
[2020-06-27 09:18] LABS: ABG SITE LEFT RADIAL; ALLEN TEST OK? YES
[2020-06-27] MEDS: Toprol Xl 50 MG PO SCH ×2 (09:18→21:05)
[2020-06-27] MEDS ORDERED: FLUZONE HIGH-DOSE QUAD 2020-21 IM ONE (10:00)
[2020-06-27] MEDS: TYLENOL 325 MG PO PRN (18:30)
--- NOTE | 2020-06-27 19:50 | PCM.NOTE ---
Date and Time: 06/27/201948 Subjective Assessment: doing better - Review of Systems Constitutional: No Fever, No Chills Eyes: No Symptoms Ears, Nose, & Throat: No Symptoms Respiratory: No Cough, No Short Of Breath Cardiac: No Chest Pain, No Edema, No Syncope Abdominal/Gastrointestinal: No Abdominal Pain, No Nausea, No Vomiting, No Diarrhea Genitourinary Symptoms: No Dysuria Musculoskeletal: No Back Pain, No Neck Pain Skin: No Rash Neurological: No Dizziness, No Focal Weakness, No Sensory Changes Psychological: No Symptoms Endocrine: No Symptoms Hematologic/Lymphatic: No Symptoms Immunological/Allergic: No Symptoms Objective Exam General Appearance: no apparent distress, alert Neurologic Exam: alert, oriented x 3, cooperative, normal mood/affect, nml cerebellar function, sensation nml, No motor deficits Skin Exam: normal color, warm, dry Eye Exam: PERRL, EOMI, eyes nml inspection Ears, Nose, Throat Exam: normal ENT inspection, pharynx normal, moist mucous membranes Neck Exam: normal inspection, non-tender, supple, full range of motion Respiratory Exam: normal breath sounds, lungs clear, No respiratory distress Cardiovascular Exam: regular rate/rhythm, normal heart sounds Gastrointestinal/Abdomen Exam: soft, No tenderness, No mass Extremity Exam: normal inspection, normal range of motion Back Exam: normal inspection, normal range of motion, No CVA tenderness, No vertebral tenderness Pelvic Exam: deferred Rectal Exam: deferred OBJECTIVE DATA Vital Signs: Vital Signs - 24 hr Temp Pulse Resp BP Pulse Ox 06/27/20 16:00 98.1 F 63 20 140/61 95 06/27/20 11:48 98.3 F 62 18 132/63 94 L 06/27/20 07:32 97.6 F 60 20 107/56 06/27/20 04:00 98.1 F 76 24 117/58 96 06/26/20 23:45 97.7 F 71 22 109/55 97 Pain Assessment - Last Documented Pain Intensity 0 Pain Scale Used 0-10 Pain Scale Intake and Output: Intake & Output 06/25/20 06/26/20 06/27/20 06/28/20 11:59 11:59 11:59 11:59 Intake Total 9956 3024 3799 1950 Output Total 1350 3550 4100 1200 Balance 8606 -526 -301 750 Weight 80.3 kg 80.3 kg Lab Results: Lab Results-Last 24 Hours 06/26/20 06/27/20 06/27/20 Range/Units 21:37 04:50 04:50 WBC 5.6 (4.0-10.5) K/mm3 RBC 2.50 L (4.1-5.4) M/mm3 Hgb 7.6 L (12.0-16.0) gm/dl Hct 25.5 L (35-47) % MCV 102.0 H (78-100) fl MCH 30.4 (26-32) pg MCHC 29.8 L (32-36) g/dl RDW 16.1 H (11.5-14.0) % Plt Count 142 L (150-450) K/mm3 MPV 11.8 H (7.5-11.0) fl Gran % 62.4 (36.0-66.0) % Eos # (Auto) 0.24 (0-0.5) Absolute Lymphs (auto) 1.55 (1.0-4.6) Absolute Monos (auto) 0.31 (0.0-1.3) Lymphocytes % 27.6 (24.0-44.0) % Monocytes % 5.5 (0.0-12.0) % Eosinophils % 4.3 (0.00-5.0) % Basophils % 0.2 (0.0-0.4) % Absolute Granulocytes 3.50 (1.4-6.9) Basophils # 0.01 (0-0.4) Puncture Site pCO2 (35-45) mmHg pO2 (75-100) mmHg Base Excess (-2.0-2.0) O2 Saturation (94-100) g/dF ABG pH (7.35-7.45) ABG HCO3 (22-28) ABG O2 Sat (Measured) (95-100) % Vik Test A-a Gradient a/A Ratio Hemoglobin Carboxyhemoglobin (0.0-6.9) % THgb Methemoglobin (1.4-1.5) % Temperature C POC O2 Flow Rate % Sodium 144 (137-145) mmol/L Potassium 3.8 (3.5-5.1) mmol/L Chloride 122 H (98-107) mmol/L Carbon Dioxide 10 L* (22-30) mmol/L Anion Gap 17.2 H (5-15) MEQ/L BUN 45 H (7-17) mg/dL Creatinine 3.17 H (0.52-1.04) mg/dL Estimated GFR 15.1 ML/MIN Glucose 134 H (74-106) mg/dL POC Glucometer 114 H (74 to 106) mg/dL Calcium 8.8 (8.4-10.2) mg/dL Total Bilirubin 0.40 (0.2-1.3) mg/dL AST 20 (14-36) U/L ALT 16 (0-35) U/L Alkaline Phosphatase 224 H (38-126) U/L Serum Total Protein 5.4 L (6.3-8.2) g/dL Albumin 2.9 L (3.5-5.0) g/dL Amylase 101 (30-110) U/L Lipase 415 H (23-300) U/L 06/27/20 06/27/20 06/27/20 Range/Units 06:47 09:12 10:46 WBC (4.0-10.5) K/mm3 RBC (4.1-5.4) M/mm3 Hgb (12.0-16.0) gm/dl Hct (35-47) % MCV (78-100) fl MCH (26-32) pg MCHC (32-36) g/dl RDW (11.5-14.0) % Plt Count (150-450) K/mm3 MPV (7.5-11.0) fl Gran % (36.0-66.0) % Eos # (Auto) (0-0.5) Absolute Lymphs (auto) (1.0-4.6) Absolute Monos (auto) (0.0-1.3) Lymphocytes % (24.0-44.0) % Monocytes % (0.0-12.0) % Eosinophils % (0.00-5.0) % Basophils % (0.0-0.4) % Absolute Granulocytes (1.4-6.9) Basophils # (0-0.4) Puncture Site LEFT RADIAL pCO2 23 L (35-45) mmHg pO2 96 (75-100) mmHg Base Excess -12.2 L (-2.0-2.0) O2 Saturation 97.1 (94-100) g/dF ABG pH 7.32 L (7.35-7.45) ABG HCO3 11.9 L* (22-28) ABG O2 Sat (Measured) 99.3 (95-100) % Vik Test YES A-a Gradient 25 a/A Ratio 0.79 Hemoglobin 8.3 Carboxyhemoglobin 1.1 (0.0-6.9) % THgb Methemoglobin 1.2 L (1.4-1.5) % Temperature 37.0 C POC O2 Flow Rate 21 % Sodium (137-145) mmol/L Potassium 3.8 (3.5-5.1) mmol/L Chloride (98-107) mmol/L Carbon Dioxide (22-30) mmol/L Anion Gap (5-15) MEQ/L BUN (7-17) mg/dL Creatinine (0.52-1.04) mg/dL Estimated GFR ML/MIN Glucose (74-106) mg/dL POC Glucometer 129 H 134 H (74 to 106) mg/dL Calcium (8.4-10.2) mg/dL Total Bilirubin (0.2-1.3) mg/dL AST (14-36) U/L ALT (0-35) U/L Alkaline Phosphatase (38-126) U/L Serum Total Protein (6.3-8.2) g/dL Albumin (3.5-5.0) g/dL Amylase (30-110) U/L Lipase (23-300) U/L 06/27/20 Range/Units 15:51 WBC (4.0-10.5) K/mm3 RBC (4.1-5.4) M/mm3 Hgb (12.0-16.0) gm/dl Hct (35-47) % MCV (78-100) fl MCH (26-32) pg MCHC (32-36) g/dl RDW (11.5-14.0) % Plt Count (150-450) K/mm3 MPV (7.5-11.0) fl Gran % (36.0-66.0) % Eos # (Auto) (0-0.5) Absolute Lymphs (auto) (1.0-4.6) Absolute Monos (auto) (0.0-1.3) Lymphocytes % (24.0-44.0) % Monocytes % (0.0-12.0) % Eosinophils % (0.00-5.0) % Basophils % (0.0-0.4) % Absolute Granulocytes (1.4-6.9) Basophils # (0-0.4) Puncture Site pCO2 (35-45) mmHg pO2 (75-100) mmHg Base Excess (-2.0-2.0) O2 Saturation (94-100) g/dF ABG pH (7.35-7.45) ABG HCO3 (22-28) ABG O2 Sat (Measured) (95-100) % Vik Test A-a Gradient a/A Ratio Hemoglobin Carboxyhemoglobin (0.0-6.9) % THgb Methemoglobin (1.4-1.5) % Temperature C POC O2 Flow Rate % Sodium (137-145) mmol/L Potassium (3.5-5.1) mmol/L Chloride (98-107) mmol/L Carbon Dioxide (22-30) mmol/L Anion Gap (5-15) MEQ/L BUN (7-17) mg/dL Creatinine (0.52-1.04) mg/dL Estimated GFR ML/MIN Glucose (74-106) mg/dL POC Glucometer 107 H (74 to 106) mg/dL Calcium (8.4-10.2) mg/dL Total Bilirubin (0.2-1.3) mg/dL AST (14-36) U/L ALT (0-35) U/L Alkaline Phosphatase (38-126) U/L Serum Total Protein (6.3-8.2) g/dL Albumin (3.5-5.0) g/dL Amylase (30-110) U/L Lipase (23-300) U/L Multi-Disciplinary Progress Notes: Multi-Disciplinary Progress Notes 06/27/20 09:24 Case Management Note by Leela Phan PATIENT STILL FEELING ILL, WILL CONTINUE TO MONITOR FOR NEEDS AT ME. Initialized on 06/27/20 09:24 - END OF NOTE Assessment/Plan (1) Pancreatitis Current Visit: Yes Status: Acute Qualifiers: Chronicity: acute Pancreatitis type: unspecified pancreatitis type Acute pancreatitis complication: no infection or necrosis Qualified Code(s): K85.90 - Acute pancreatitis without necrosis or infection, unspecified Assessment & Plan: improving Code(s): K85.90 - ACUTE PANCREATITIS WITHOUT NECROSIS OR INFECTION, UNSP (2) Acute renal failure syndrome Current Visit: Yes Status: Acute Qualifiers: Acute renal failure type: unspecified Qualified Code(s): N17.9 - Acute kidney failure, unspecified (3) Type 2 diabetes mellitus Current Visit: Yes Status: Acute Qualifiers: Diabetes mellitus senior care insulin use: without ferry terminal agent use Diabetes mellitus complication status: with ketoacidosis Diabetes mellitus complication detail: without coma Qualified Code(s): E11.10 - Type 2 diabetes mellitus with ketoacidosis without coma (4) Metabolic acidosis due to diabetes mellitus Current Visit: Yes Status: Acute Assessment & Plan: improving Code(s): E11.69 - TYPE 2 DIABETES MELLITUS WITH OTHER SPECIFIED COMPLICATION; E87.2 - ACIDOSIS (5) Hypertension Current Visit: Yes Status: Chronic Qualifiers: Hypertension type: essential hypertension Qualified Code(s): I10 - Essential (primary) hypertension Code(s): I10 - ESSENTIAL (PRIMARY) HYPERTENSION (6) Dehydration Current Visit: Yes Status: Resolved Code(s): E86.0 - DEHYDRATION
[2020-06-27] MEDS: Zofran 4 MG/2 ML VIAL IV PRN (21:05)
[2020-06-28 05:16] LABS: Hematocrit 25.2 % (35-47); Hemoglobin 7.6 gm/dl (12.0-16.0); Mean Cell Volume 100.4 fl (78-100); Mean Corpuscular Hemoglobin 30.3 pg (26-32); Mean Corpuscular Hgb Concent. 30.2 g/dl (32-36); Mean Platelet Volume 12.1 fl (7.5-11.0); Platelet Count 128 K/mm3 (150-450); Red Blood Count 2.51 M/mm3 (4.1-5.4); Red Cell Distribution Width 16.5 % (11.5-14.0); White Blood Count 5.8 K/mm3 (4.0-10.5)
[2020-06-28 05:40] LABS: ANION GAP 18.4 MEQ/L (5-15); BILIRUBIN,TOTAL 0.4 mg/dL (0.2-1.3); Calcium 8.9 mg/dL (8.4-10.2); Creatinine 1 2.3 mg/dL (0.52-1.04); EST GLOMERULAR FILTRATION RATE 21.9 ML/MIN; Potassium 3.9 mmol/L (3.5-5.1); Total Protein 5.5 g/dL (6.3-8.2)
[2020-06-28] MEDS ORDERED: Magnesium Sulfate 1 GM/2 ML VIAL IV ONE (09:22)
[2020-06-28] MEDS: ECOTRIN 81 MG PO SCH (09:25)
[2020-06-28] MEDS: PROTONIX 40 MG IV IV SCH (09:25)
[2020-06-28] MEDS: Phenergan 25 MG INJ IV PRN (09:26)
[2020-06-28] MEDS: ROCEPHIN 1 Gm-D5w 50 ml Bag** 1 G/50 ML IVPB IV SCH (09:31)
[2020-06-28] MEDS: Toprol Xl 50 MG PO SCH ×2 (09:31→21:21)
[2020-06-28] MEDS: Magnesium 1 Gm / 100 Ml D5W*** 100 ML IV SCH ×2 (10:01→11:06)
[2020-06-28] MEDS: Sodium Chloride 0.9% 1000 ML 1,000 ML IV SCH ×3 (10:01→20:15)
--- NOTE | 2020-06-28 11:45 | PCM.NOTE ---
Date and Time: 06/28/20 1143 Subjective Assessment: doing better, labs are improving - Review of Systems Constitutional: No Fever, No Chills Eyes: No Symptoms Ears, Nose, & Throat: No Symptoms Respiratory: No Cough, No Short Of Breath Cardiac: No Chest Pain, No Edema, No Syncope Abdominal/Gastrointestinal: No Abdominal Pain, No Nausea, No Vomiting, No Diarrhea Genitourinary Symptoms: No Dysuria Musculoskeletal: No Back Pain, No Neck Pain Skin: No Rash Neurological: No Dizziness, No Focal Weakness, No Sensory Changes Psychological: No Symptoms Endocrine: No Symptoms Hematologic/Lymphatic: No Symptoms Immunological/Allergic: No Symptoms OBJECTIVE DATA Vital Signs: Vital Signs - 24 hr Temp Pulse Resp BP Pulse Ox 06/28/20 07:19 97.9 F 56 L 18 119/56 96 06/28/20 04:00 97.5 F 57 L 18 126/62 97 06/27/20 23:37 97.8 F 60 16 155/70 98 06/27/20 19:48 97.6 F 59 L 17 145/63 92 L 06/27/20 16:00 98.1 F 63 20 140/61 95 06/27/20 11:48 98.3 F 62 18 132/63 94 L Pain Assessment - Last Documented Pain Intensity 0 Pain Scale Used 0-10 Pain Scale Intake and Output: Intake & Output 06/25/20 06/26/20 06/27/20 06/28/20 11:59 11:59 11:59 11:59 Intake Total 9956 3024 3799 3555 Output Total 1350 3550 4100 2900 Balance 8606 -526 -301 655 Weight 80.3 kg 80.3 kg Lab Results: Lab Results-Last 24 Hours 06/27/20 06/27/20 06/28/20 Range/Units 15:51 20:51 04:30 WBC 5.8 (4.0-10.5) K/mm3 RBC 2.51 L (4.1-5.4) M/mm3 Hgb 7.6 L (12.0-16.0) gm/dl Hct 25.2 L (35-47) % MCV 100.4 H (78-100) fl MCH 30.3 (26-32) pg MCHC 30.2 L (32-36) g/dl RDW 16.5 H (11.5-14.0) % Plt Count 128 L (150-450) K/mm3 MPV 12.1 H (7.5-11.0) fl Sodium (137-145) mmol/L Potassium (3.5-5.1) mmol/L Chloride (98-107) mmol/L Carbon Dioxide (22-30) mmol/L Anion Gap (5-15) MEQ/L BUN (7-17) mg/dL Creatinine (0.52-1.04) mg/dL Estimated GFR ML/MIN Glucose (74-106) mg/dL POC Glucometer 107 H 135 H (74 to 106) mg/dL Calcium (8.4-10.2) mg/dL Magnesium (1.6-2.3) mg/dL Total Bilirubin (0.2-1.3) mg/dL AST (14-36) U/L ALT (0-35) U/L Alkaline Phosphatase (38-126) U/L Serum Total Protein (6.3-8.2) g/dL Albumin (3.5-5.0) g/dL Amylase (30-110) U/L Lipase (23-300) U/L 06/28/20 06/28/20 06/28/20 Range/Units 04:30 07:03 07:11 WBC (4.0-10.5) K/mm3 RBC (4.1-5.4) M/mm3 Hgb (12.0-16.0) gm/dl Hct (35-47) % MCV (78-100) fl MCH (26-32) pg MCHC (32-36) g/dl RDW (11.5-14.0) % Plt Count (150-450) K/mm3 MPV (7.5-11.0) fl Sodium 149 H (137-145) mmol/L Potassium 3.9 (3.5-5.1) mmol/L Chloride 124 H (98-107) mmol/L Carbon Dioxide 11 L* (22-30) mmol/L Anion Gap 18.4 H (5-15) MEQ/L BUN 33 H (7-17) mg/dL Creatinine 2.30 H (0.52-1.04) mg/dL Estimated GFR 21.9 ML/MIN Glucose 148 H (74-106) mg/dL POC Glucometer 133 H (74 to 106) mg/dL Calcium 8.9 (8.4-10.2) mg/dL Magnesium 1.0 L* (1.6-2.3) mg/dL Total Bilirubin 0.40 (0.2-1.3) mg/dL AST 17 (14-36) U/L ALT 13 (0-35) U/L Alkaline Phosphatase 210 H (38-126) U/L Serum Total Protein 5.5 L (6.3-8.2) g/dL Albumin 3.0 L (3.5-5.0) g/dL Amylase 69 (30-110) U/L Lipase 289 (23-300) U/L 06/28/20 Range/Units 11:36 WBC (4.0-10.5) K/mm3 RBC (4.1-5.4) M/mm3 Hgb (12.0-16.0) gm/dl Hct (35-47) % MCV (78-100) fl MCH (26-32) pg MCHC (32-36) g/dl RDW (11.5-14.0) % Plt Count (150-450) K/mm3 MPV (7.5-11.0) fl Sodium (137-145) mmol/L Potassium (3.5-5.1) mmol/L Chloride (98-107) mmol/L Carbon Dioxide (22-30) mmol/L Anion Gap (5-15) MEQ/L BUN (7-17) mg/dL Creatinine (0.52-1.04) mg/dL Estimated GFR ML/MIN Glucose (74-106) mg/dL POC Glucometer 169 H (74 to 106) mg/dL Calcium (8.4-10.2) mg/dL Magnesium (1.6-2.3) mg/dL Total Bilirubin (0.2-1.3) mg/dL AST (14-36) U/L ALT (0-35) U/L Alkaline Phosphatase (38-126) U/L Serum Total Protein (6.3-8.2) g/dL Albumin (3.5-5.0) g/dL Amylase (30-110) U/L Lipase (23-300) U/L Multi-Disciplinary Progress Notes: Multi-Disciplinary Progress Notes 06/28/20 08:53 Case Management Note by Leela Phan S/W PATIENT ABOUT PHYSICAL THERAPY'S CONCERN THAT SHE WILL DC HOME AND BE SEDENTARY AND CONTINUE TO DEBILITATE. SHE WAS ENCOURAGED TO CONSIDER HHC SERVICES OR OTPT PHYSICAL THERAPY. SHE STATED SHE WOULD THINK ABOUT IT. PATIENT GIVEN LIST [facility] PROVIDERS TO DISCUSS AND LOOK OVER WITH HER FAMILY. WILL CONTINUE TO FOLLOW. Initialized on 06/28/20 08:53 - END OF NOTE Assessment/Plan (1) Metabolic acidosis with normal anion gap and bicarbonate losses Current Visit: Yes Status: Acute Assessment & Plan: improving Code(s): E87.2 - ACIDOSIS (2) Pancreatitis Current Visit: Yes Status: Acute Qualifiers: Chronicity: acute Pancreatitis type: unspecified pancreatitis type Acute pancreatitis complication: no infection or necrosis Qualified Code(s): K85.90 - Acute pancreatitis without necrosis or infection, unspecified Code(s): K85.90 - ACUTE PANCREATITIS WITHOUT NECROSIS OR INFECTION, UNSP (3) Acute renal failure syndrome Current Visit: Yes Status: Acute Qualifiers: Acute renal failure type: unspecified Qualified Code(s): N17.9 - Acute kidney failure, unspecified (4) Type 2 diabetes mellitus Current Visit: Yes Status: Acute Qualifiers: Diabetes mellitus rat exterminator insulin use: without rat exterminator use Diabetes mellitus complication status: with ketoacidosis Diabetes mellitus complication detail: without coma Qualified Code(s): E11.10 - Type 2 diabetes mellitus with ketoacidosis without coma (5) Metabolic acidosis due to diabetes mellitus Current Visit: Yes Status: Acute Code(s): E11.69 - TYPE 2 DIABETES MELLITUS WITH OTHER SPECIFIED COMPLICATION; E87.2 - ACIDOSIS (6) Hypertension Current Visit: Yes Status: Chronic Qualifiers: Hypertension type: essential hypertension Qualified Code(s): I10 - Essential (primary) hypertension Code(s): I10 - ESSENTIAL (PRIMARY) HYPERTENSION (7) Dehydration Current Visit: Yes Status: Resolved Code(s): E86.0 - DEHYDRATION
[2020-06-28] MEDS: Zofran 4 MG/2 ML VIAL IV PRN (20:14)
[2020-06-29] MEDS: Sodium Chloride 0.9% 1000 ML 1,000 ML IV SCH ×3 (03:03→18:51)
[2020-06-29 05:16] LABS: Hematocrit 24.6 % (35-47); Hemoglobin 7.4 gm/dl (12.0-16.0); Mean Cell Volume 99.6 fl (78-100); Mean Corpuscular Hgb Concent. 30.1 g/dl (32-36); Mean Platelet Volume 12.4 fl (7.5-11.0); Platelet Count 125 K/mm3 (150-450); Red Blood Count 2.47 M/mm3 (4.1-5.4); Red Cell Distribution Width 17.1 % (11.5-14.0); White Blood Count 6.8 K/mm3 (4.0-10.5)
[2020-06-29 05:49] LABS: ALBUMIN 2.9 g/dL (3.5-5.0); ANION GAP 11.7 MEQ/L (5-15); BILIRUBIN,TOTAL 0.4 mg/dL (0.2-1.3); Calcium 8.7 mg/dL (8.4-10.2); Creatinine 1 1.7 mg/dL (0.52-1.04); EST GLOMERULAR FILTRATION RATE 31.1 ML/MIN; MAGNESIUM 1.3 mg/dL (1.6-2.3); Potassium 3.4 mmol/L (3.5-5.1); Total Protein 5.3 g/dL (6.3-8.2)
[2020-06-29] MEDS: ECOTRIN 81 MG PO SCH (09:47)
[2020-06-29] MEDS: PROTONIX 40 MG IV IV SCH (09:47)
[2020-06-29] MEDS: ROCEPHIN 1 Gm-D5w 50 ml Bag** 1 G/50 ML IVPB IV SCH (09:49)
[2020-06-29] MEDS: Toprol Xl 50 MG PO SCH ×2 (09:49→23:38)
[2020-06-29] MEDS ORDERED: FLUZONE HIGH-DOSE QUAD 2020-21 IM ONE (10:00)
--- NOTE | 2020-06-29 11:41 | PCM.NOTE ---
Date and Time: 06/29/201138 Subjective Assessment: doing ok, eating better - Review of Systems Constitutional: No Fever, No Chills Eyes: No Symptoms Ears, Nose, & Throat: No Symptoms Respiratory: No Cough, No Short Of Breath Cardiac: No Chest Pain, No Edema, No Syncope Abdominal/Gastrointestinal: No Abdominal Pain, No Nausea, No Vomiting, No Diarrhea Genitourinary Symptoms: No Dysuria Musculoskeletal: No Back Pain, No Neck Pain Skin: No Rash Neurological: No Dizziness, No Focal Weakness, No Sensory Changes Psychological: No Symptoms Endocrine: No Symptoms Hematologic/Lymphatic: No Symptoms Immunological/Allergic: No Symptoms Objective Exam General Appearance: no apparent distress, alert Neurologic Exam: alert, oriented x 3, cooperative, normal mood/affect, nml cerebellar function, sensation nml, No motor deficits Skin Exam: normal color, warm, dry Eye Exam: PERRL, EOMI, eyes nml inspection Ears, Nose, Throat Exam: normal ENT inspection, pharynx normal, moist mucous membranes Neck Exam: normal inspection, non-tender, supple, full range of motion Respiratory Exam: normal breath sounds, lungs clear, No respiratory distress Cardiovascular Exam: regular rate/rhythm, normal heart sounds Gastrointestinal/Abdomen Exam: soft, No tenderness, No mass Extremity Exam: normal inspection, normal range of motion Back Exam: normal inspection, normal range of motion, No CVA tenderness, No vertebral tenderness Pelvic Exam: deferred Rectal Exam: deferred OBJECTIVE DATA Vital Signs: Vital Signs - 24 hr Temp Pulse Resp BP Pulse Ox 06/29/20 11:19 97.5 F 50 L 18 155/72 96 06/29/20 06:52 97.6 F 59 L 16 148/67 94 L 06/29/20 03:56 97.9 F 65 18 150/67 94 L 06/28/20 23:52 97.9 F 56 L 17 134/64 97 06/28/20 20:00 98.3 F 57 L 17 162/67 96 06/28/20 16:00 98.1 F 53 L 16 145/65 98 06/28/20 11:53 97.6 F 57 L 16 136/57 96 Pain Assessment - Last Documented Pain Intensity 0 Pain Scale Used 0-10 Pain Scale Intake and Output: Intake & Output 10/05/20 10/06/20 10/07/20 10/08/20 11:59 11:59 11:59 11:59 Intake Total 1023 3862 8382 3987 Output Total 1308 8363 2900 1600 Balance -526 -022 767 2630 Weight 80.3 kg Lab Results: Lab Results-Last 24 Hours 06/28/20 06/28/20 06/28/20 Range/Units 11:36 16:22 20:26 WBC (4.0-10.5) K/mm3 RBC (4.1-5.4) M/mm3 Hgb (12.0-16.0) gm/dl Hct (35-47) % MCV (78-100) fl MCH (26-32) pg MCHC (32-36) g/dl RDW (11.5-14.0) % Plt Count (150-450) K/mm3 MPV (7.5-11.0) fl Sodium (137-145) mmol/L Potassium (3.5-5.1) mmol/L Chloride (98-107) mmol/L Carbon Dioxide (22-30) mmol/L Anion Gap (5-15) MEQ/L BUN (7-17) mg/dL Creatinine (0.52-1.04) mg/dL Estimated GFR ML/MIN Glucose (74-106) mg/dL POC Glucometer 169 H 152 H 147 H (74 to 106) mg/dL Calcium (8.4-10.2) mg/dL Magnesium (1.6-2.3) mg/dL Total Bilirubin (0.2-1.3) mg/dL AST (14-36) U/L ALT (0-35) U/L Alkaline Phosphatase (38-126) U/L Serum Total Protein (6.3-8.2) g/dL Albumin (3.5-5.0) g/dL 06/29/20 06/29/20 06/29/20 Range/Units 04:20 04:20 07:07 WBC 6.8 (4.0-10.5) K/mm3 RBC 2.47 L (4.1-5.4) M/mm3 Hgb 7.4 L (12.0-16.0) gm/dl Hct 24.6 L (35-47) % MCV 99.6 (78-100) fl MCH 30.0 (26-32) pg MCHC 30.1 L (32-36) g/dl RDW 17.1 H (11.5-14.0) % Plt Count 125 L (150-450) K/mm3 MPV 12.4 H (7.5-11.0) fl Sodium 146 H (137-145) mmol/L Potassium 3.4 L (3.5-5.1) mmol/L Chloride 124 H (98-107) mmol/L Carbon Dioxide 14 L* (22-30) mmol/L Anion Gap 11.7 (5-15) MEQ/L BUN 27 H (7-17) mg/dL Creatinine 1.70 H (0.52-1.04) mg/dL Estimated GFR 31.1 ML/MIN Glucose 150 H (74-106) mg/dL POC Glucometer 140 H (74 to 106) mg/dL Calcium 8.7 (8.4-10.2) mg/dL Magnesium 1.3 L (1.6-2.3) mg/dL Total Bilirubin 0.40 (0.2-1.3) mg/dL AST 16 (14-36) U/L ALT 11 (0-35) U/L Alkaline Phosphatase 198 H (38-126) U/L Serum Total Protein 5.3 L (6.3-8.2) g/dL Albumin 2.9 L (3.5-5.0) g/dL 06/29/20 Range/Units 11:09 WBC (4.0-10.5) K/mm3 RBC (4.1-5.4) M/mm3 Hgb (12.0-16.0) gm/dl Hct (35-47) % MCV (78-100) fl MCH (26-32) pg MCHC (32-36) g/dl RDW (11.5-14.0) % Plt Count (150-450) K/mm3 MPV (7.5-11.0) fl Sodium (137-145) mmol/L Potassium (3.5-5.1) mmol/L Chloride (98-107) mmol/L Carbon Dioxide (22-30) mmol/L Anion Gap (5-15) MEQ/L BUN (7-17) mg/dL Creatinine (0.52-1.04) mg/dL Estimated GFR ML/MIN Glucose (74-106) mg/dL POC Glucometer 140 H (74 to 106) mg/dL Calcium (8.4-10.2) mg/dL Magnesium (1.6-2.3) mg/dL Total Bilirubin (0.2-1.3) mg/dL AST (14-36) U/L ALT (0-35) U/L Alkaline Phosphatase (38-126) U/L Serum Total Protein (6.3-8.2) g/dL Albumin (3.5-5.0) g/dL Multi-Disciplinary Progress Notes: Multi-Disciplinary Progress Notes 06/28/20 15:23 Physical Therapy Note by Yessenia Rodriguez PT. REPORTS FEELING SLIGHTLY LESS NAUSEOUS BUT HAS ONLY BEEN TAKING IN A SMALL AMOUNT OF CLEAR LIQUIDS. IN CHAIR THIS AM UPON PT ARRIVAL TO ROOM. SIT TO STAND MIN ASSIST. NO DIZZINESS NOTE W/ SIT TO STAND. PT. AMBULATED ~ 80' WHILE HOLDING ON TO IV POLE AND HAND-HELD ASSIST. NO UNSTEADINESS; SLIGHT DECREASED STRIDE LENGTH. DID TAKE EMESIS BAG W/ HER BUT DID NOT VOMIT. PT. WANTED TO LIE DOWN AFTER WALKING AND PERFORMED SIT TO SUPIEN W/ CGA. O2 SATS 95-96% ON RA THROUGHOUT RX. PT. WALKED ~ 120' IN PM W/ CGA AND HOLDING ON TO IV POLE. PERFORMED SUPINE TO SIT W/ MIN ASSIST W/ HOB ELEVATED. SIT TO STAND CGA FROM BED. NO VOMITING IN PM W/ FUNCTIONAL MOBILITY EITHER. WILL CONT. PT 5X/WK TO PROGRESS STRENTGH AND GAIT TOLERANCE WELL OVERALL INDEPENDENCE W/ FUNCTIONAL MOBILITY. YESSENIA RODRIGUEZ, PT Initialized on 06/28/20 15:23 - END OF NOTE Assessment/Plan (1) Metabolic acidosis with normal anion gap and bicarbonate losses Current Visit: Yes Status: Acute Assessment & Plan: improving Code(s): E87.2 - ACIDOSIS (2) Pancreatitis Current Visit: Yes Status: Acute Qualifiers: Chronicity: acute Pancreatitis type: unspecified pancreatitis type Acute pancreatitis complication: no infection or necrosis Qualified Code(s): K85.90 - Acute pancreatitis without necrosis or infection, unspecified Code(s): K85.90 - ACUTE PANCREATITIS WITHOUT NECROSIS OR INFECTION, UNSP (3) Acute renal failure syndrome Current Visit: Yes Status: Acute Qualifiers: Acute renal failure type: unspecified Qualified Code(s): N17.9 - Acute kidney failure, unspecified (4) Type 2 diabetes mellitus Current Visit: Yes Status: Acute Qualifiers: Diabetes mellitus group home insulin use: without pattern hanger use Diabetes mellitus complication status: with ketoacidosis Diabetes mellitus complication detail: without coma Qualified Code(s): E11.10 - Type 2 diabetes mellitus with ketoacidosis without coma (5) Metabolic acidosis due to diabetes mellitus Current Visit: Yes Status: Acute Code(s): E11.69 - TYPE 2 DIABETES MELLITUS WITH OTHER SPECIFIED COMPLICATION; E87.2 - ACIDOSIS (6) Hypertension Current Visit: Yes Status: Chronic Qualifiers: Hypertension type: essential hypertension Qualified Code(s): I10 - Essential (primary) hypertension Code(s): I10 - ESSENTIAL (PRIMARY) HYPERTENSION (7) Dehydration Current Visit: Yes Status: Resolved Code(s): E86.0 - DEHYDRATION
[2020-06-29] MEDS: Magnesium 1 Gm / 100 Ml D5W*** 100 ML IV SCH ×2 (12:12→13:32)
[2020-06-30] MEDS: Sodium Chloride 0.9% 1000 ML 1,000 ML IV SCH ×3 (01:35→19:36)
[2020-06-30 05:05] LABS: Absolute Neutrophil Ct (ANC) 5.78 (1.4-6.9); BASOPHIL % 0.1 % (0.0-0.4); Basophil (Absolute #) 0.01 (0-0.4); Eosinophil % 2.7 % (0.00-5.0); Eosinophil (Absolute #) 0.19 (0-0.5); Hematocrit 24.7 % (35-47); Hemoglobin 7.5 gm/dl (12.0-16.0); Lymphocyte (Absolute #) 0.71 (1.0-4.6); Lymphocytes % 10.1 % (24.0-44.0); Mean Cell Volume 99.2 fl (78-100); Mean Corpuscular Hemoglobin 30.1 pg (26-32); Mean Corpuscular Hgb Concent. 30.4 g/dl (32-36); Mean Platelet Volume 12.3 fl (7.5-11.0); Monocyte (Absolute #) 0.35 (0.0-1.3); Neutrophil % 82.1 % (36.0-66.0); Platelet Count 118 K/mm3 (150-450); Red Blood Count 2.49 M/mm3 (4.1-5.4); Red Cell Distribution Width 16.8 % (11.5-14.0)
[2020-06-30 05:16] LABS: ALBUMIN 2.7 g/dL (3.5-5.0); ANION GAP 11.7 MEQ/L (5-15); BILIRUBIN,TOTAL 0.4 mg/dL (0.2-1.3); Calcium 8.5 mg/dL (8.4-10.2); Creatinine 1 1.38 mg/dL (0.52-1.04); EST GLOMERULAR FILTRATION RATE 39.5 ML/MIN; Potassium 3.2 mmol/L (3.5-5.1); Total Protein 5.1 g/dL (6.3-8.2)
[2020-06-30] MEDS: PROTONIX 40 MG IV IV SCH (07:34)
--- NOTE | 2020-06-30 09:02 | XRAY ---
Indication: shelter placement. Comparison: January 25, 2010. Portable chest now demonstrates borderline cardiomegaly with vascular prominence, pulmonary edema, and small bibasilar effusions concerning for mild/early cardiac decompensation. Superimposed pneumonia not completely excluded. Bony thorax intact.
[2020-06-30] MEDS: ECOTRIN 81 MG PO SCH (10:15)
[2020-06-30] MEDS: Toprol Xl 50 MG PO SCH ×2 (10:15→21:00)
[2020-06-30] MEDS: ROCEPHIN 1 Gm-D5w 50 ml Bag** 1 G/50 ML IVPB IV SCH (10:16)
--- NOTE | 2020-06-30 10:41 | PCM.NOTE ---
Date and Time: 06/30/20 1040 Subjective Assessment: doing better - Review of Systems Constitutional: No Fever, No Chills Eyes: No Symptoms Ears, Nose, & Throat: No Symptoms Respiratory: No Cough, No Short Of Breath Cardiac: No Chest Pain, No Edema, No Syncope Abdominal/Gastrointestinal: No Abdominal Pain, No Nausea, No Vomiting, No Diarrhea Genitourinary Symptoms: No Dysuria Musculoskeletal: No Back Pain, No Neck Pain Skin: No Rash Neurological: No Dizziness, No Focal Weakness, No Sensory Changes Psychological: No Symptoms Endocrine: No Symptoms Hematologic/Lymphatic: No Symptoms Immunological/Allergic: No Symptoms Objective Exam General Appearance: no apparent distress, alert Neurologic Exam: alert, oriented x 3, cooperative, normal mood/affect, nml cerebellar function, sensation nml, No motor deficits Skin Exam: normal color, warm, dry Eye Exam: PERRL, EOMI, eyes nml inspection Ears, Nose, Throat Exam: normal ENT inspection, pharynx normal, moist mucous membranes Neck Exam: normal inspection, non-tender, supple, full range of motion Respiratory Exam: normal breath sounds, lungs clear, No respiratory distress Cardiovascular Exam: regular rate/rhythm, normal heart sounds Gastrointestinal/Abdomen Exam: soft, No tenderness, No mass Extremity Exam: normal inspection, normal range of motion Back Exam: normal inspection, normal range of motion, No CVA tenderness, No vertebral tenderness Pelvic Exam: deferred Rectal Exam: deferred OBJECTIVE DATA Vital Signs: Vital Signs - 24 hr Temp Pulse Resp BP Pulse Ox 06/30/20 07:21 97.8 F 60 20 132/60 96 06/30/20 03:55 98.0 F 64 18 130/60 93 L 06/29/20 23:59 98.6 F 58 L 14 150/72 95 06/29/20 20:00 97.8 F 55 L 24 151/70 95 06/29/20 16:00 97.7 F 53 L 18 158/65 96 06/29/20 11:19 97.5 F 50 L 18 155/72 96 Pain Assessment - Last Documented Pain Intensity 0 Pain Scale Used 0-10 Pain Scale Intake and Output: Intake & Output 06/27/20 06/28/20 06/29/20 06/30/20 11:59 11:59 11:59 11:59 Intake Total 1286 4415 3986 4676 Output Total 4100 2900 1600 1600 Balance -899 853 [id number] 8796 8592 Weight 80.3 kg Lab Results: Lab Results-Last 24 Hours 06/29/20 06/29/20 06/29/20 Range/Units 11:09 16:36 21:11 WBC (4.0-10.5) K/mm3 RBC (4.1-5.4) M/mm3 Hgb (12.0-16.0) gm/dl Hct (35-47) % MCV (78-100) fl MCH (26-32) pg MCHC (32-36) g/dl RDW (11.5-14.0) % Plt Count (150-450) K/mm3 MPV (7.5-11.0) fl Gran % (36.0-66.0) % Eos # (Auto) (0-0.5) Absolute Lymphs (auto) (1.0-4.6) Absolute Monos (auto) (0.0-1.3) Lymphocytes % (24.0-44.0) % Monocytes % (0.0-12.0) % Eosinophils % (0.00-5.0) % Basophils % (0.0-0.4) % Absolute Granulocytes (1.4-6.9) Basophils # (0-0.4) Sodium (137-145) mmol/L Potassium (3.5-5.1) mmol/L Chloride (98-107) mmol/L Carbon Dioxide (22-30) mmol/L Anion Gap (5-15) MEQ/L BUN (7-17) mg/dL Creatinine (0.52-1.04) mg/dL Estimated GFR ML/MIN Glucose (74-106) mg/dL POC Glucometer 140 H 147 H 139 H (74 to 106) mg/dL Calcium (8.4-10.2) mg/dL Total Bilirubin (0.2-1.3) mg/dL AST (14-36) U/L ALT (0-35) U/L Alkaline Phosphatase (38-126) U/L Serum Total Protein (6.3-8.2) g/dL Albumin (3.5-5.0) g/dL 06/30/20 06/30/20 06/30/20 Range/Units 04:30 04:30 06:50 WBC 7.0 (4.0-10.5) K/mm3 RBC 2.49 L (4.1-5.4) M/mm3 Hgb 7.5 L (12.0-16.0) gm/dl Hct 24.7 L (35-47) % MCV 99.2 (78-100) fl MCH 30.1 (26-32) pg MCHC 30.4 L (32-36) g/dl RDW 16.8 H (11.5-14.0) % Plt Count 118 L (150-450) K/mm3 MPV 12.3 H (7.5-11.0) fl Gran % 82.1 H (36.0-66.0) % Eos # (Auto) 0.19 (0-0.5) Absolute Lymphs (auto) 0.71 L (1.0-4.6) Absolute Monos (auto) 0.35 (0.0-1.3) Lymphocytes % 10.1 L (24.0-44.0) % Monocytes % 5.0 (0.0-12.0) % Eosinophils % 2.7 (0.00-5.0) % Basophils % 0.1 (0.0-0.4) % Absolute Granulocytes 5.78 (1.4-6.9) Basophils # 0.01 (0-0.4) Sodium 145 (137-145) mmol/L Potassium 3.2 L (3.5-5.1) mmol/L Chloride 121 H (98-107) mmol/L Carbon Dioxide 15 L* (22-30) mmol/L Anion Gap 11.7 (5-15) MEQ/L BUN 21 H (7-17) mg/dL Creatinine 1.38 H (0.52-1.04) mg/dL Estimated GFR 39.5 ML/MIN Glucose 146 H (74-106) mg/dL POC Glucometer 135 H (74 to 106) mg/dL Calcium 8.5 (8.4-10.2) mg/dL Total Bilirubin 0.40 (0.2-1.3) mg/dL AST 15 (14-36) U/L ALT 10 (0-35) U/L Alkaline Phosphatase 188 H (38-126) U/L Serum Total Protein 5.1 L (6.3-8.2) g/dL Albumin 2.7 L (3.5-5.0) g/dL 06/30/20 Range/Units 10:24 WBC (4.0-10.5) K/mm3 RBC (4.1-5.4) M/mm3 Hgb (12.0-16.0) gm/dl Hct (35-47) % MCV (78-100) fl MCH (26-32) pg MCHC (32-36) g/dl RDW (11.5-14.0) % Plt Count (150-450) K/mm3 MPV (7.5-11.0) fl Gran % (36.0-66.0) % Eos # (Auto) (0-0.5) Absolute Lymphs (auto) (1.0-4.6) Absolute Monos (auto) (0.0-1.3) Lymphocytes % (24.0-44.0) % Monocytes % (0.0-12.0) % Eosinophils % (0.00-5.0) % Basophils % (0.0-0.4) % Absolute Granulocytes (1.4-6.9) Basophils # (0-0.4) Sodium (137-145) mmol/L Potassium (3.5-5.1) mmol/L Chloride (98-107) mmol/L Carbon Dioxide (22-30) mmol/L Anion Gap (5-15) MEQ/L BUN (7-17) mg/dL Creatinine (0.52-1.04) mg/dL Estimated GFR ML/MIN Glucose (74-106) mg/dL POC Glucometer 191 H (74 to 106) mg/dL Calcium (8.4-10.2) mg/dL Total Bilirubin (0.2-1.3) mg/dL AST (14-36) U/L ALT (0-35) U/L Alkaline Phosphatase (38-126) U/L Serum Total Protein (6.3-8.2) g/dL Albumin (3.5-5.0) g/dL Radiology Exams: Radiology Procedures Category Date Time Status CHEST 1 VIEW (PORTABLE) Urgent Exams 06/30/20 08:10 Completed Multi-Disciplinary Progress Notes: Multi-Disciplinary Progress Notes 06/30/20 10:18 Case Management Note by Leela Phan PAPERWORK COMPLETE- NO LEVEL II REQUIRED. WILL PLACE COPY ON CHART AND PLAN TO FAX COPY TO [facility] Initialized on 06/30/20 10:18 - END OF NOTE 06/30/20 10:03 Case Management Note by Leela Phan LATE AFTERNOON 06/29/20- PATIENT AND FAMILY DECIDED THEY WOULD LIKE HER TO GO TO [facility] REHAB AT TIME OF DC. REFERRAL PACKET SENT THIS AM FOR THEM TO START INSURANCE PRECERT. S/W WITH PATIENT THIS AM- SHE IS STILL AGREEABLE AT THIS TIME. WILL WAIT TO HEAR BACK FROM [facility] Initialized on 06/30/20 10:03 - END OF NOTE 06/29/20 15:05 Physical Therapy Note by Yessenia Rodriguez PT. REPORTS FATIGUE THIS AM. STATES SHE SLEPT WELL BUT STILL FEELS TIRED ALL OF THE TIME. NO C/O PN. STATES NAUSEA HAS BEEN BETTER BUT REPORTS NOT FEELING LIKE EATING. PT. PERFORMED SUPINE TO SIT W/ SBA W/ HOB ELEVATED. SIT TO STAND SBA. PT. AMBULATED 120' W/ SBA. PT. HELD ON TO IV POLE BUT NO INSTABILITY NOTED. PACE OF GAIT IMPROVED TODAY. PT. PERFORMED SEATED LE EX'S X 10 REPS OF LAQS, MARCHES, SLRS, HEEL RAISES, AND ANKLE DF. O2 SATS 94% ON RA W/ AMBULATION AND EXERCISE. WILL CONT. PT UNTIL D/C TO PROGRESS STRENGTHENING AND MAXIMIZE FUNCTIONAL POTENTIAL. YESSENIA RODRIGUEZ, PT Initialized on 06/29/20 15:05 - END OF NOTE 06/29/20 13:54 Case Management Note by Lisa Sosa DISCUSSION WITH PT REGARDING NEEDS ON DISCHARGE. DISCUSSED HOME WITH [facility] VS REHAB STAY AT [facility]. PT REPORTS THAT SHE WANTS TO TALK WITH HER DAUGHTER THIS EVENING, AND WILL MAKE A DECISION. WILL CHECK BACK WITH PT IN THE MORNING. PT C/O SEVERE DRY MOUTH, NO APPETITE, DOESN'T FEEL LIKE EATING OR DRINKING. HAS FLUIDS AT BEDSIDE. CL IN REACH. WILL FOLLOW. Initialized on 06/29/20 13:54 - END OF NOTE Assessment/Plan (1) Metabolic acidosis with normal anion gap and bicarbonate losses Current Visit: Yes Status: Acute Assessment & Plan: improving Code(s): E87.2 - ACIDOSIS (2) Pancreatitis Current Visit: Yes Status: Acute Qualifiers: Chronicity: acute Pancreatitis type: unspecified pancreatitis type Acute pancreatitis complication: no infection or necrosis Qualified Code(s): K85.90 - Acute pancreatitis without necrosis or infection, unspecified Code(s): K85.90 - ACUTE PANCREATITIS WITHOUT NECROSIS OR INFECTION, UNSP (3) Acute renal failure syndrome Current Visit: Yes Status: Acute Qualifiers: Acute renal failure type: unspecified Qualified Code(s): N17.9 - Acute kidney failure, unspecified (4) Type 2 diabetes mellitus Current Visit: Yes Status: Acute Qualifiers: Diabetes mellitus intermediate insulin use: without middle or intermediate school principal use Diabetes mellitus complication status: with ketoacidosis Diabetes mellitus complication detail: without coma Qualified Code(s): E11.10 - Type 2 diabetes mellitus with ketoacidosis without coma (5) Metabolic acidosis due to diabetes mellitus Current Visit: Yes Status: Acute Code(s): E11.69 - TYPE 2 DIABETES MELLITUS WITH OTHER SPECIFIED COMPLICATION; E87.2 - ACIDOSIS (6) Hypertension Current Visit: Yes Status: Chronic Qualifiers: Hypertension type: essential hypertension Qualified Code(s): I10 - Ess ential (primary) hypertension Code(s): I10 - ESSENTIAL (PRIMARY) HYPERTENSION (7) Dehydration Current Visit: Yes Status: Resolved Code(s): E86.0 - DEHYDRATION
--- NOTE | 2020-06-30 17:30 | PCM.DS ---
Discharge Summary Date of Admission: 06/24/20 12:18 Date of Discharge: 07/01/2020 Admitting Physician: SHANDRA LEONARD Primary Care Provider: SHANDRA LEONARD Allergies Allergies No Known Drug Allergies Allergy (Verified 06/24/20 10:37) Hospital Summary - Hospital Course Hospital Course: Chief Complaint Diagnosis DEHYDRATION, ARF Allergies Allergy/AdvReac Type Severity Reaction Status Date / Time No Known Drug Allergies Allergy Verified 06/24/20 10:37 Vital Signs (Last 24 hours) Temp Pulse Resp BP Pulse Ox 06/30/20 15:50 98.3 F 61 20 154/68 95 06/30/20 12:00 98.1 F 51 L 18 130/62 95 06/30/20 07:21 97.8 F 60 20 132/60 96 06/30/20 03:55 98.0 F 64 18 130/60 93 L 06/29/20 23:59 98.6 F 58 L 14 150/72 95 06/29/20 20:00 97.8 F 55 L 24 151/70 95 Home Medications Medication Instructions Recorded Confirmed Last Taken Type Empagliflozin [Jardiance] 10 mg PO QAM 06/24/20 06/24/20 06/23/20 History Lisinopril/Hydrochlorothiazide 1 tab PO DAILY 06/24/20 06/24/20 06/23/20 History [Lisinopril-Hctz 10-12.5 mg Tab] Ondansetron HCl 4 mg SL Q8H 06/24/20 06/24/20 06/23/20 History Simvastatin 40 mg PO HS 06/24/20 06/24/20 06/23/20 History allopurinoL [Allopurinol] 300 mg PO BID 06/24/20 06/24/20 06/23/20 History Current Medications Generic Name Dose Route Start Last Admin Trade Name Freq PRN Reason Stop Dose Admin Acetaminophen 650 mg 06/24/20 16:22 06/27/20 18:30 Tylenol 325 Mg PO 07/24/20 16:21 650 mg Q4H PRN PRN Administration PAIN AND/OR FEVER Aspirin 81 mg 06/24/20 14:00 06/30/20 10:15 Ecotrin 81 Mg PO 07/24/20 13:59 81 mg DAILY RAMILA Administration Sodium Chloride 1,000 mls @ 50 mls/hr 10/03/20 12:25 06/30/20 07:34 Sodium Chloride 0.9% 1000 Ml IV 07/24/20 12:24 150 mls/hr .Q20H RAMILA Administration Ceftriaxone Sodium/Dextrose 1 g in 50 mls @ 100 mls/hr 06/25/20 10:00 06/30/20 10:16 Rocephin 1 Gm-D5w 50 Ml Bag IV 07/25/20 09:59 100 mls/hr Q24H10 RAMILA Administration Insulin Human Regular 0 unit 06/24/20 12:25 Humulin R SQ 07/24/20 12:24 UD PRN HYPERGLYCEMIA Metoprolol Succinate 50 mg 06/24/20 14:00 06/30/20 10:15 Toprol Xl 50 Mg PO 07/24/20 13:59 50 mg BID RAMILA Administration Ondansetron HCl 4 mg 06/26/20 12:22 06/28/20 20:14 Zofran 4 Mg/2 Ml Vial IV 07/24/20 12:24 4 mg Q4H PRN Administration NAUSEA/VOMITING Pantoprazole Sodium 40 mg 06/25/20 09:15 06/30/20 07:34 Protonix 40 Mg Iv IV 07/25/20 09:14 40 mg Q24H RAMILA Administration Promethazine HCl 12.5 mg 06/26/20 15:13 06/28/20 09:26 Phenergan 25 Mg Inj IV 07/26/20 15:12 12.5 mg Q6H PRN PRN Administration NAUSEA/VOMITING Discontinued Medications Generic Name Dose Route Start Last Admin Trade Name Freq PRN Reason Stop Dose Admin Sodium Chloride 1,000 mls @ 999 mls/hr 06/24/20 10:20 06/24/20 11:50 Sodium Chloride 0.9% 1000 Ml IV 06/24/20 11:20 Infused .Q1H1M STA Infusion Sodium Chloride Confirm 06/24/20 10:46 Sodium Chloride 0.9% 1000 Ml Administered 06/24/20 10:47 Dose 1,000 mls @ ud .ROUTE .STK-MED ONE Sodium Chloride Confirm 06/24/20 11:32 Sodium Chloride 0.9% 1000 Ml Administered 06/24/20 11:33 Dose 1,000 mls @ ud .ROUTE .STK-MED ONE Sodium Chloride 1,000 mls @ 999 mls/hr 06/24/20 11:51 06/24/20 11:52 Sodium Chloride 0.9% 1000 Ml IV 06/24/20 12:51 999 mls/hr .Q1H1M STA Administration Sodium Chloride 1,000 mls @ 999 mls/hr 06/24/20 16:16 06/24/20 16:44 Sodium Chloride 0.9% 1000 Ml IV 06/24/20 17:16 999 mls/hr .Q1H1M STA Administration Sodium Chloride 1,000 mls @ 999 mls/hr 06/24/20 17:30 06/24/20 17:38 Sodium Chloride 0.9% 1000 Ml IV 06/24/20 18:00 999 mls/hr .Q1H1M RAMILA Administration Sodium Chloride 1,000 mls @ 999 mls/hr 06/24/20 21:56 06/25/20 00:08 Sodium Chloride 0.9% 1000 Ml IV 06/24/20 22:56 999 mls/hr .Q1H1M STA Administration Magnesium Sulfate/Dextrose 100 mls @ 200 mls/hr 06/28/20 10:00 06/28/20 11:06 Magnesium 1 Gm / 100 Ml D5w IV 06/28/20 11:29 200 mls/hr Q1H RAMILA Administration Magnesium Sulfate/Dextrose 100 mls @ 200 mls/hr 06/29/20 11:45 06/29/20 13:32 Magnesium 1 Gm / 100 Ml D5w IV 06/29/20 13:14 200 mls/hr Q1H RAMILA Administration Ondansetron HCl 4 mg 06/24/20 10:20 06/24/20 10:49 Zofran 4 Mg/2 Ml Vial IV 06/24/20 10:21 4 mg STAT ONE Administration Ondansetron HCl Confirm 06/24/20 10:46 Zofran 4 Mg/2 Ml Vial Administered 06/24/20 10:47 Dose 4 mg .ROUTE .STK-MED ONE Ondansetron HCl 4 mg 06/24/20 12:25 06/26/20 12:19 Zofran 4 Mg/2 Ml Vial IV 07/24/20 12:24 4 mg Q6H PRN PRN Administration NAUSEA/VOMITING Pantoprazole Sodium 40 mg 06/24/20 10:20 06/24/20 10:49 Protonix 40 Mg Iv IV 06/24/20 10:21 40 mg STAT ONE Administration Pantoprazole Sodium Confirm 06/24/20 10:46 Protonix 40 Mg Iv Administered 06/24/20 10:47 Dose 40 mg IV .STK-MED ONE Sodium Chloride 10 ml 06/25/20 22:00 06/27/20 20:49 Sodium Chloride 0.9% 10 Ml Flush Syringe IV 07/25/20 21:59 Not Given Q8HT RAMILA Intake & Output (Last 24 hours) 06/28/20 06/29/20 06/30/20 07/01/20 11:59 11:59 11:59 11:59 Intake Total 3555 3986 4676 1688 Output Total 2900 1600 1600 1750 Balance 655 2386 3076 -62 Laboratory Results (Last 24 hours) 06/30/20 06/30/20 06/30/20 15:41 10:24 06:50 WBC RBC Hgb Hct MCV MCH MCHC RDW Plt Count MPV Gran % Eos # (Auto) Absolute Lymphs (auto) Absolute Monos (auto) Lymphocytes % Monocytes % Eosinophils % Basophils % Absolute Granulocytes Basophils # Sodium Potassium Chloride Carbon Dioxide Anion Gap BUN Creatinine Estimated GFR Glucose POC Glucometer 149 H 191 H 135 H Calcium Total Bilirubin AST ALT Alkaline Phosphatase Serum Total Protein Albumin 06/30/20 06/30/20 06/29/20 04:30 04:30 21:11 WBC 7.0 RBC 2.49 L Hgb 7.5 L Hct 24.7 L MCV 99.2 MCH 30.1 MCHC 30.4 L RDW 16.8 H Plt Count 118 L MPV 12.3 H Gran % 82.1 H Eos # (Auto) 0.19 Absolute Lymphs (auto) 0.71 L Absolute Monos (auto) 0.35 Lymphocytes % 10.1 L Monocytes % 5.0 Eosinophils % 2.7 Basophils % 0.1 Absolute Granulocytes 5.78 Basophils # 0.01 Sodium 145 Potassium 3.2 L Chloride 121 H Carbon Dioxide 15 L* Anion Gap 11.7 BUN 21 H Creatinine 1.38 H Estimated GFR 39.5 Glucose 146 H POC Glucometer 139 H Calcium 8.5 Total Bilirubin 0.40 AST 15 ALT 10 Alkaline Phosphatase 188 H Serum Total Protein 5.1 L Albumin 2.7 L Orders (Last 24 hours) Category Date Time Status CHEST 1 VIEW (PORTABLE) Urgent Exams 06/30/20 08:10 Completed CBC W DIFF AM.LAB Lab 06/30/20 04:30 Completed CMP AM.LAB Lab 06/30/20 04:30 Completed POCT GLUCOSE Stat Lab 06/29/20 16:36 Completed POCT GLUCOSE Stat Lab 06/29/20 21:11 Completed POCT GLUCOSE Stat Lab 06/30/20 06:50 Completed POCT GLUCOSE Stat Lab 06/30/20 10:24 Completed POCT GLUCOSE Stat Lab 06/30/20 15:41 Completed Patient Care Notes (Last 24 hours) 06/30/20 17:13 Case Management Note by Lisa Sosa CALLED TO REPORT THAT PT'S INSURANCE HAS DENIED INPATIENT REHAB STAY. REPORTS THAT THEY FEEL SHE IS BEST SUITED FOR EITHER OUTPATIENT P.T. OR HOME WITH [facility] AND P.T. WILL REPORT TO DR. LEONARD. DID HAVE DISCUSSION WITH PT. SHE FEELS THAT SHE IS WEAK, BUT WOULD TRY TO GO HOME WITH [facility]. REQUESTS REFERRAL TO [facility] WHEN READY FOR DISCHARGE. Initialized on 06/30/20 17:13 - END OF NOTE 06/30/20 13:36 Nutrition Note by Laura Fermin F/u Note: Note Pt diet advanced to soft on 06/29 with 25-50% po intake. no new wt. Most labs improved 06/30: K+ 3.2, BUN 21, Cr 1.38, glu 146, alb 2.7, liver enzymes wnl, hgb 7.5, hct 24.7. Pt reports severe xerostomia and nausea with attempts to eat. Unclear as to pt rec'g med to increase saliva. recommend water with lemon slices to aid. NH adm pending. CARLO Stein Initialized on 06/30/20 13:36 - END OF NOTE 06/30/20 11:13 Physical Therapy Note by Yessenia Acuna PT. REPORTS SHE IS FEELING BETTER. REPORTS SHE IS PLANNING TO D/C TO [facility] TO CONT. REHAB. PERFORMED SUPINE TO SIT AND SIT TO SUPINE W/ SBA W/ HOB ELEVATED. SIT TO STAND SBA FROM BED. PT. AMBULATED 150' W/ SBA. ONE SLIGHT LOB TO RIGHT FOR WHICH PT. NEEDED CGA TO RECOVER. PT. NEGOTIATED TURN WELL WITHOUT LOB. NOTED SOME DYSPNEA DURING AND AFTER WALK AND DID REST LONGTERM THROUGH AND DID SOEM DEEP BREATHING. O2 SATS 91% ON ROOM AIR AFTER WALK BUT INCEASED TO 93% W/ PROPER BREATHING. WILL CONT. P.T. UNTIL D/C TO INCREASE GAIT TOLERANCE AND ENDURANCE TO MAXIMIZE FUNCTIONAL POTENTIAL. YESSENIA ACUNA, PT Initialized on 06/30/20 11:13 - END OF NOTE 06/30/20 10:52 Case Management Note by Leela Phan S/W HEATHER AT [facility]- THEY HAVE ACCEPTED PATIENT BUT ARE WAITING ON INSURANCE TO APPROVE STAY. THEY ARE ALSO NOT REQUIRING A COVID TEST. Initialized on 06/30/20 10:52 - END OF NOTE 06/30/20 10:18 Case Management Note by Leela Phan PAPERWORK COMPLETE- NO LEVEL II REQUIRED. WILL PLACE COPY ON CHART AND PLAN TO FAX COPY TO [facility] Initialized on 06/30/20 10:18 - END OF NOTE 06/30/20 10:03 Case Management Note by Leela Phan LATE AFTERNOON 06/29/20- PATIENT AND FAMILY DECIDED THEY WOULD LIKE HER TO GO TO [facility] REHAB AT TIME OF DC. REFERRAL PACKET SENT THIS AM FOR THEM TO START INSURANCE PRECERT. S/W WITH PATIENT THIS AM- SHE IS STILL AGREEABLE AT THIS TIME. WILL WAIT TO HEAR BACK FROM [facility] Initialized on 06/30/20 10:03 - END OF NOTE Patient inpatient rehab denied by insurance. They have approved Home health and out patient physical therpy. Patient is still very weak, My reccomendation are inpatient rehab. - Vitals & Intake/Output Vital Signs: Vital Signs Temperature 98.3 F 06/30/20 15:50 Pulse Rate 61 06/30/20 15:50 Respiratory Rate 20 06/30/20 15:50 Blood Pressure 154/68 06/30/20 15:50 O2 Sat by Pulse Oximetry 95 06/30/20 15:50 Intake & Output: Intake & Output 06/28/20 06/29/20 06/30/20 07/01/20 11:59 11:59 11:59 11:59 Intake Total 3555 3986 4676 1688 Output Total 2900 1600 1600 1750 Balance 655 2386 3076 -62 - Lab Result Diagrams: 06/30/20 04:30 06/30/20 04:30 Lab Results-Last 24 Hrs: Lab Results-Last 24 Hours 06/29/20 06/30/20 06/30/20 Range/Units 21:11 04:30 04:30 WBC 7.0 (4.0-10.5) K/mm3 RBC 2.49 L (4.1-5.4) M/mm3 Hgb 7.5 L (12.0-16.0) gm/dl Hct 24.7 L (35-47) % MCV 99.2 (78-100) fl MCH 30.1 (26-32) pg MCHC 30.4 L (32-36) g/dl RDW 16.8 H (11.5-14.0) % Plt Count 118 L (150-450) K/mm3 MPV 12.3 H (7.5-11.0) fl Gran % 82.1 H (36.0-66.0) % Eos # (Auto) 0.19 (0-0.5) Absolute Lymphs (auto) 0.71 L (1.0-4.6) Absolute Monos (auto) 0.35 (0.0-1.3) Lymphocytes % 10.1 L (24.0-44.0) % Monocytes % 5.0 (0.0-12.0) % Eosinophils % 2.7 (0.00-5.0) % Basophils % 0.1 (0.0-0.4) % Absolute Granulocytes 5.78 (1.4-6.9) Basophils # 0.01 (0-0.4) Sodium 145 (137-145) mmol/L Potassium 3.2 L (3.5-5.1) mmol/L Chloride 121 H (98-107) mmol/L Carbon Dioxide 15 L* (22-30) mmol/L Anion Gap 11.7 (5-15) MEQ/L BUN 21 H (7-17) mg/dL Creatinine 1.38 H (0.52-1.04) mg/dL Estimated GFR 39.5 ML/MIN Glucose 146 H (74-106) mg/dL POC Glucometer 139 H (74 to 106) mg/dL Calcium 8.5 (8.4-10.2) mg/dL Total Bilirubin 0.40 (0.2-1.3) mg/dL AST 15 (14-36) U/L ALT 10 (0-35) U/L Alkaline Phosphatase 188 H (38-126) U/L Serum Total Protein 5.1 L (6.3-8.2) g/dL Albumin 2.7 L (3.5-5.0) g/dL 06/30/20 06/30/20 06/30/20 Range/Units 06:50 10:24 15:41 WBC (4.0-10.5) K/mm3 RBC (4.1-5.4) M/mm3 Hgb (12.0-16.0) gm/dl Hct (35-47) % MCV (78-100) fl MCH (26-32) pg MCHC (32-36) g/dl RDW (11.5-14.0) % Plt Count (150-450) K/mm3 MPV (7.5-11.0) fl Gran % (36.0-66.0) % Eos # (Auto) (0-0.5) Absolute Lymphs (auto) (1.0-4.6) Absolute Monos (auto) (0.0-1.3) Lymphocytes % (24.0-44.0) % Monocytes % (0.0-12.0) % Eosinophils % (0.00-5.0) % Basophils % (0.0-0.4) % Absolute Granulocytes (1.4-6.9) Basophils # (0-0.4) Sodium (137-145) mmol/L Potassium (3.5-5.1) mmol/L Chloride (98-107) mmol/L Carbon Dioxide (22-30) mmol/L Anion Gap (5-15) MEQ/L BUN (7-17) mg/dL Creatinine (0.52-1.04) mg/dL Estimated GFR ML/MIN Glucose (74-106) mg/dL POC Glucometer 135 H 191 H 149 H (74 to 106) mg/dL Calcium (8.4-10.2) mg/dL Total Bilirubin (0.2-1.3) mg/dL AST (14-36) U/L ALT (0-35) U/L Alkaline Phosphatase (38-126) U/L Serum Total Protein (6.3-8.2) g/dL Albumin (3.5-5.0) g/dL Micro Results-Entire Visit: Microbiology 06/25/20 06:30 Blood Culture Gram Stain - Final Blood Not Reportable Blood Culture - Final NO GROWTH 06/24/20 11:02 Urine Culture - Final Urine, Void STREPTOCOCCI SPECIES, BETA HEMOLYTIC 20 CFU/ML MOST STREPTOCOCCI SENSITIVE TO PENICILLIN; NO ASHER PERFORMED RESUBMIT NEW SPECIMEN IF CLINICALLY INDICATED - Radiology Exams Ordered Rad Exams-Entire Visit: Radiology Procedures Category Date Time Status CHEST 1 VIEW (PORTABLE) Urgent Exams 06/30/20 08:10 Completed - Procedures and Test Procedures and Tests throughout Hospitalization: Therapy Orders & Screens 06/24/20 12:25 Oxygen Nasal Cannula 2 lpm Comment: 06/26/20 08:19 PT Eval & Treat (MD Order) ONCE Reason for Eval:: weakness noted in admission assess Diagnosis: DEHYDRATION, ARF Discharge Exam General Appearance: no apparent distress, alert Neurologic Exam: alert, oriented x 3, cooperative, normal mood/affect, nml cerebellar function, sensation nml, No motor deficits Eye Exam: PERRL, EOMI, eyes nml inspection Ears, Nose, Throat Exam: normal ENT inspection, pharynx normal, moist mucous membranes Neck Exam: normal inspection, non-tender, supple, full range of motion Respiratory Exam: normal breath sounds, lungs clear, No respiratory distress Cardiovascular Exam: regular rate/rhythm, normal heart sounds Gastrointestinal/Abdomen Exam: soft, No tenderness, No mass Pelvic Exam: deferred Rectal Exam: deferred Back Exam: normal inspection, normal range of motion, No CVA tenderness, No vertebral tenderness Extremity Exam: normal inspection, normal range of motion Skin Exam: normal color, warm, dry Final Diagnosis/Problem List - Final Discharge Diagnosis/Problem (1) Metabolic acidosis with normal anion gap and bicarbonate losses Current Visit: Yes Status: Resolved Code(s): E87.2 - ACIDOSIS (2) Pancreatitis Current Visit: Yes Status: Resolved Code(s): K85.90 - ACUTE PANCREATITIS WITHOUT NECROSIS OR INFECTION, UNSP (3) Acute renal failure syndrome Current Visit: Yes Status: Resolved (4) Type 2 diabetes mellitus Current Visit: Yes Status: Chronic (5) Metabolic acidosis due to diabetes mellitus Current Visit: Yes Status: Resolved Code(s): E11.69 - TYPE 2 DIABETES MELLITUS WITH OTHER SPECIFIED COMPLICATION; E87.2 - ACIDOSIS (6) Hypertension Current Visit: Yes Status: Chronic Code(s): I10 - ESSENTIAL (PRIMARY) HYPERTENSION (7) Dehydration Current Visit: Yes Status: Resolved Code(s): E86.0 - DEHYDRATION - Discharge Discharge Date: 07/01/20 Disposition: HOME HEALTH SERVICE Condition: Stable Prescriptions: Continue Metformin HCl 1000 mg [Glucophage 1000 MG] 1,000 mg PO BID Metoprolol Succinate 50 mg [Toprol Xl 50 MG] 50 mg PO BID Aspirin EC 81 mg [Ecotrin 81 mg] 81 mg PO DAILY allopurinoL [Allopurinol] 300 mg PO BID Ondansetron HCl 4 mg SL Q8H Simvastatin 40 mg PO HS Discontinued Lisinopril/Hydrochlorothiazide [Lisinopril-Hctz 10-12.5 mg Tab] 1 tab PO DAILY Empagliflozin [Jardiance] 10 mg PO QAM Instructions: Dehydration, Adult (DC) Additional Instructions: [facility] ORDERS: SOFT DIET ADVANCE TOLERATED PT/OT EVAL AND TREAT SEE ATTACHED MED LIST Follow up with: SHANDRA LEONARD MD [Primary Care Provider] - 07/04/20 3:00 pm
[2020-07-01] MEDS: Sodium Chloride 0.9% 1000 ML 1,000 ML IV SCH (00:24)
[2020-07-01] MEDS: ECOTRIN 81 MG PO SCH (09:33)
[2020-07-01] MEDS: ROCEPHIN 1 Gm-D5w 50 ml Bag** 1 G/50 ML IVPB IV SCH (09:33)
[2020-07-01] MEDS: Toprol Xl 50 MG PO SCH (09:33)
[2020-07-01] MEDS: PROTONIX 40 MG IV IV SCH (09:33)
[2020-07-01 12:20] VITALS: BP 180/78; PULSE 56; O2SAT 93
== END 2020-07-01 14:25 | disposition home health service (06) | DRG 640 ==
LOC: ED 10:04 → MED SURG 12:18
PROVIDERS: ADMIT General Practice; ATTEND General Practice
DX: E87.2 Acidosis (principal); K85.90 Acute pancreatitis without necrosis or infection, unspecified; N17.9 Acute kidney failure, unspecified; E11.69 Type 2 diabetes mellitus with other specified complication; I10 Essential (primary) hypertension; E86.0 Dehydration; Z79.899 Other long term (current) drug therapy; R53.1 Weakness; E78.00 Pure hypercholesterolemia, unspecified
CPT/HCPCS: 36000; 36415; 36600; 71045; 74176; 80053; 81001; 82150; 82375; 82803; 82962; 83036; 83605; 83690; 83735; 84484; 85025; 85027; 87040; 87086; 94760; 94762; 96360; 96374; 96375; 99285; 99291; J0696; J2405; J2550; J3475; 97110-GP; A9270-GY